=== PATIENT | male | born 1965 | race Caucasian/White ===

== ENCOUNTER → 2016-06-27 | Outpatient (CLI) | payer OTHER ==
[~2016-06-27] MED LIST: ASPI-435 PO; BUSP15TA70 PO; CINN500T PO; OMEP40CA PO
[2016-06-27 10:58] LABS: BASO % 0.2 %; BASO ABS # 0.01 K/uL (0-0.2); COMPLETE YES; EOS % 0.5 %; HEMATOCRIT 41.9 % (42-52); IG% 0.2 %; LYMPH ABS # 1.57 K/uL (1.2-3.4); MEAN CELL VOLUME 92.3 fL (80-100); MEAN CORPUSCULAR HEMOGLOBIN 30.4 pg (25-34); MEAN CORPUSCULAR HGB CONC 32.9 g/dl (32-36); MEAN PLATELET VOLUME 11.1 fL (7.4-10.4); MONO % 8.6 %; NEUT % 62.5 %; PLATELET COUNT 268 K/uL (130-400); RED BLOOD COUNT 4.54 M/uL (4.7-6.1)
[2016-06-27 11:20] LABS: ALT/SGPT 29 U/L (12-78); AST/SGOT 18 U/L (15-37); BLOOD UREA NITROGEN 19 mg/dl (7-18); BUN/CREATININE RATIO 19.2 (10-20); CALCIUM 8.6 mg/dl (8.5-10.1); CARBON DIOXIDE 28 mmol/L (21-32); CHLORIDE 108 mmol/L (98-107); GLUCOSE 97 mg/dl (70-99); POTASSIUM 4.3 mmol/L (3.5-5.1); SODIUM 144 mmol/L (136-145)
[2016-06-27 11:23] LABS: ALB/GLOB RATIO 1.1 (0.9-2); ALKALINE PHOSPHATASE 74 U/L (45-117); CHOLESTEROL 272 mg/dl (0-200); CHOLESTEROL/HDL RATIO 7.4; HDL CHOLESTEROL 37 mg/dl; LDL CHOLESTEROL CALCULATED 199 mg/dl; TRIGLYCERIDES 179 mg/dl (0-150); VERY LOW DENSITY LIPOPROT CALC 36 mg/dl
== END | disposition home or self-care (01) ==
LOC: C.LABBC 08:03
PROVIDERS: ATTEND Family Medicine
DX: E78.5 Hyperlipidemia, unspecified (principal); Z13.0 Encounter for screening for diseases of the blood and blood-forming organs and certain disorders involving the immune mechanism

== ENCOUNTER → 2016-07-02 | Outpatient (CLI) | payer OTHER ==
[2016-07-02 14:05] LABS: FERRITIN 344.3 ng/ml (8.0-388.0)
== END | disposition home or self-care (01) ==
LOC: C.LABBC 11:06
PROVIDERS: ATTEND Family Medicine
DX: D64.9 Anemia, unspecified (principal)

== ENCOUNTER → 2016-12-03 | Outpatient (CLI) | payer OTHER ==
[~2016-12-03] VITALS: Ht 179.1 cm; Wt 137.0 kg
[2016-12-03 13:52] VITALS: BP 143/87; PULSE 90; Ht 179.1 cm; Wt 137.0 kg
== END | disposition home or self-care (01) ==
LOC: C.NEUR 11:13
PROVIDERS: ATTEND Internal Medicine Pulmonary Disease
DX: G47.33 Obstructive sleep apnea (adult) (pediatric) (principal)

== ENCOUNTER 2021-07-10 04:31 | Inpatient (IN) ==
[2021-07-10] MEDS ORDERED: MoRPHine SULFATE 4 MG/ML 1 ML CARP\\VIAL IV STA (04:46)
[2021-07-10] MEDS ORDERED: SODIUM CHLORIDE 0.9% 1000ML 1,000 ML IV ONE (04:46)
--- NOTE | 2021-07-10 04:50 | Emergency Department Note ---
History of Present Illness General Chief complaint: Abdominal Pain Stated complaint: ABD PAIN Time Seen by Provider: 07/10/21 04:39 History of Present Illness Maximum Pain Intensity: 7 This 56-year-old presents to the ER complaining of abdominal pain Location: Lower abdomen Quality: Painful Severity: Moderate Duration: Past few days Timing: Started few days ago Context: Symptoms persisted and patient given Modifying factors: better with nothing; worse with activity No prior abdominal surgeries. No similar symptoms in the past. No prior diverticulitis. Patient denies chest pain, dyspnea, fevers, vomiting, diarrhea, urinary symptoms, testicular pain. No flank pain. Home Medications Medication Instructions Recorded Confirmed Type omeprazole 20 mg tablet,delayed 20 mg PO DAILY 01/10/19 04/28/21 History release CPAP Supplies #1 ea 02/20/19 04/28/21 Rx aspirin 81 mg chewable tablet 81 mg PO 2XWK tab 11/16/19 04/28/21 History irbesartan 150 mg tablet 150 mg PO DAILY #90 tab 02/28/21 04/28/21 Rx atorvastatin 40 mg tablet 80 mg PO HS #90 tab 04/28/21 Rx buspirone 5 mg tablet 5 mg PO BID PRN #60 tab 04/28/21 04/28/21 Rx naproxen sodium [Aleve] PO 04/28/21 04/28/21 History ciprofloxacin HCl 500 mg tablet 500 mg PO BID 10 Days #20 tab 07/10/21 Rx (Cipro) metronidazole 500 mg tablet 500 mg PO Q8H 10 Days #30 tab 07/10/21 Rx Allergies Allergy/AdvReac Type Severity Reaction Status Date / Time Penicillins Allergy Intermediate ANGIOEDEMA Verified 04/28/21 08:24 Past Med/Surg History Medical History (Updated 07/10/21 @ 08:59 by Trenton Phelan) Anxiety GERD (gastroesophageal reflux disease) History of diverticulitis Hyperlipidemia Hypertension Osteoarthritis Prediabetes Sleep apnea CPAP Surgical History (Updated 07/10/21 @ 08:44 by Trenton Phelan) History of arthroscopy of left knee History of cardiac cath 2011 @ [facility] no stents History of colonoscopy 06/2018 - sigmoid diverticular disease, 2 polyps History of surgery on arm left bicep tendon repair - Wally Mohamud MD History of tonsillectomy and adenoidectomy History of tooth extraction History of wisdom tooth extraction Status post myringotomy with tube placement of both ears Family History (Updated 07/10/21 @ 08:44 by Trenton Phelan) Father Family history of diabetes mellitus Daughter Family hx of colon cancer Grandmother Ovarian cancer Uncle Myocardial infarction Mother Brain cancer SOCK DRIER Lymphoma Other Breast cancer Colorectal cancer Coronary heart disease Heart disease Hypertension No family history of adverse response to anesthesia Denies family history of Prostate cancer Social History (Updated 07/10/21 @ 08:45 by Trenton Phelan) Smoking Status: Current every day smoker Tobacco Type: Cigarettes Cigarettes Per Day: 15; Second Hand Exposure: No; Do You Dip or Chew Tobacco: No; Tobacco Cessation Education Requested by Patient: No Hx Alcohol Use: Yes Alcohol type: beer Hx Substance Use: No Preferred Language: Occitan Communication Ability: Effective Visual Impairment: Limited Hearing Ability: Normal Poultry Farmer Required: No Beliefs That Will Affect Care: None marital status: Current Living Situation: Spouse Current Living Situation Comment: Lives with and 2 granddaughters current occupational status: employed 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 How many Children do You have: 4 Other Information That Helps Us Care for You: No Feels Safe at Home: Yes Safety Concerns: Feels Safe At This Time Childhood Exposure to Second-Hand Smoke: Yes caffeine: Yes during the past year weight has: remained stable Dental Care, Regularly: No Physical Activity Frequency: Does not Exercise Seatbelt Use: always Sunscreen Use: Yes Assistive Devices: CPAP and Glasses Review of Systems A total of 10 systems reviewed and were otherwise negative Physical Exam Vital Signs Vital Signs - 24 hr 07/10/21 04:34 07/10/21 05:00 07/10/21 05:02 Temperature 36.3 C L Temperature Source Temporal Artery Scan Pulse Rate 99 H 94 H Pulse Rate [Apical] 95 H Pulse Rhythm Regular Pulse Rhythm [Apical] Regular Pulse Strength [Apical] Normal Respiratory Rate 16 18 18 Respiratory Effort / Characteristics Non-Labored Spontaneous Respiratory Depth Normal Respiratory Pattern Regular Blood Pressure 153/92 H Blood Pressure [Right Arm] 134/76 Blood Pressure Mean 112 Blood Pressure Mean [Right Arm] 95 Blood Pressure Position [Right Arm] Semi-fowlers Pulse Oximetry 98 98 98 Oxygen Delivery Method Room Air Room Air Room Air Sepsis Recent Fever Within 48 Hours No Sepsis New/Unexplained Change in Mental Status No Sepsis Action Taken by Nursing No Action Required 07/10/21 07:00 Temperature Temperature Source Pulse Rate Pulse Rate [Apical] 89 Pulse Rhythm Pulse Rhythm [Apical] Regular Pulse Strength [Apical] Normal Respiratory Rate 17 Respiratory Effort / Characteristics Non-Labored Spontaneous Respiratory Depth Normal Respiratory Pattern Blood Pressure Blood Pressure [Right Arm] 134/76 Blood Pressure Mean Blood Pressure Mean [Right Arm] 95 Blood Pressure Position [Right Arm] Lying Pulse Oximetry 98 Oxygen Delivery Method Room Air Sepsis Recent Fever Within 48 Hours Sepsis New/Unexplained Change in Mental Status Sepsis Action Taken by Nursing VITALS: Vitals are noted on the nurse's note and reviewed by myself. Vital signs stable. GENERAL: Pleasant male, in no acute distress, nondiaphoretic, well-developed well-nourished. SKIN: The skin was without rashes, erythema, edema, or bruising. There is no tenting of the skin. Capillary reflex less than 2 seconds. HEAD: Normocephalic atraumatic. EARS: External auditory canals clear EYES: Pupils equal round and reactive to light and accommodation. Conjunctivae without injection, sclerae without icterus. Extraocular movements intact. NOSE: Patent, turbinates without inflammation or discharge. MOUTH: Mucous membranes moist. Pharynx without erythema or exudate. Uvula midline. Airway patent. Tongue does not deviate. NECK: Supple without nuchal rigidity. No lymphadenopathy. No thyromegaly. Cervical spine is nontender. No JVD. HEART: Regular rate and rhythm LUNGS: Clear to auscultation bilaterally without wheezes, rales or rhonchi. No retractions or accessory muscle use. ABDOMEN: Positive bowel sounds x 4. Normal tympanic percussion. Soft, tender lower abdomen,, without masses or organomegaly. Cates sign negative. No guarding or rebound tenderness. No CVA tenderness MUSCULOSKELETAL: No muscle atrophy, erythema, or edema noted. NEURO: Patient was alert and oriented to person place and time. Normal sensation to light and sharp touch. No focal neurological deficits. Course Administered Medications Enoxaparin Sodium (Enoxaparin Inj 40 Mg/0.4 Ml Syr) 40 mg SQ Q12H MATTHEW Stop: 08/09/21 20:59 Last Admin: 07/10/21 21:18 Dose: 40 mg Documented by: [id number] Hydromorphone HCl (Hydromorphone Inj 0.5 Mg/0.5 Ml Syr) 0.5 mg IV Q6H PRN PRN Reason: Pain Stop: 07/24/21 08:52 Last Admin: 07/10/21 23:05 Dose: 0.5 mg Documented by: [id number] Admin: 07/10/21 17:09 Dose: 0.5 mg Documented by: [id number] Meropenem 500 mg/ Syringe 10 mls @ 2 mls/min IV Q6H MATTHEW; Protocol Stop: 07/20/21 11:59 Last Admin: 07/10/21 23:05 Dose: 2 mls/min Documented by: [id number] Admin: 07/10/21 17:12 Dose: 2 mls/min Documented by: [id number] Admin: 07/10/21 12:27 Dose: 2 mls/min Documented by: [id number] Lactated Ringer's (Lr) 1,000 mls @ 125 mls/hr IV .Q8H MATTHEW Stop: 08/09/21 08:52 Last Admin: 07/10/21 17:13 Dose: 125 mls/hr Documented by: [id number] Infusion: 07/10/21 17:13 Dose: 125 mls/hr Documented by: [id number] Admin: 07/10/21 09:21 Dose: 125 mls/hr Documented by: [id number] Famotidine 20 mg/ Syringe 5 mls @ 2.5 mls/min IV BID MATTHEW Stop: 08/09/21 08:59 Last Admin: 07/10/21 21:20 Dose: 2.5 mls/min Documented by: [id number] Admin: 07/10/21 12:28 Dose: 2.5 mls/min Documented by: [id number] Lactobacillus Acidophilus (Advanced Probiotic 1250 Mg Capsule) 2 cap PO DAILY MATTHEW Stop: 08/09/21 08:59 Last Admin: 07/10/21 12:27 Dose: 2 cap Documented by: [id number] Discontinued Medications Ciprofloxacin (Ciprofloxacin 500mg Home Pack) 1 homepack PO UD ONE Stop: 07/10/21 06:05 Last Admin: 07/10/21 08:07 Dose: Not Given Documented by: [id number] Hydromorphone HCl (Hydromorphone Inj 0.5 Mg/0.5 Ml Syr) 0.25 mg IV Q6H PRN PRN Reason: Pain Stop: 07/24/21 08:52 Last Admin: 07/10/21 09:20 Dose: 0.25 mg Documented by: [id number] Sodium Chloride (Nss 1000ml) 1,000 mls @ 999 mls/hr IV .Q1H1M ONE Stop: 07/10/21 05:46 Last Infusion: 07/10/21 07:23 Dose: 0 mls/hr Documented by: [id number] Admin: 07/10/21 05:12 Dose: 999 mls/hr Documented by: [id number] Ciprofloxacin (Cipro / D5w) 400 mg in 200 mls @ 100 mls/hr IV NOW STA; Protocol Stop: 07/10/21 08:03 Last Infusion: 07/10/21 08:24 Dose: 0 mls/hr Documented by: [id number] Admin: 07/10/21 06:24 Dose: 100 mls/hr Documented by: [id number] Ioversol (Optiray 320 125ml) 119 ml IV ONCE ONE Stop: 07/10/21 05:38 Last Admin: 07/10/21 05:40 Dose: 119 ml Documented by: [id number] Ketorolac Tromethamine (Ketorolac 30 Mg/Ml Vial) 30 mg IV NOW ONE Stop: 07/10/21 17:01 Last Admin: 07/10/21 17:08 Dose: 30 mg Documented by: [id number] Metronidazole (Metronidazole 500 Mg Tab) 500 mg PO NOW STA Stop: 07/10/21 06:05 Last Admin: 07/10/21 06:28 Dose: 500 mg Documented by: [id number] Morphine Sulfate (Morphine Sulfate 4 Mg/Ml 1 Ml Carp\Vial) 4 mg IV NOW STA Stop: 07/10/21 04:47 Last Admin: 07/10/21 05:14 Dose: 4 mg Documented by: [id number] Ondansetron HCl (Ondansetron Inj 2 Mg/Ml 2 Ml Vial) 4 mg IV NOW STA Stop: 07/10/21 04:47 Last Admin: 07/10/21 05:00 Dose: 4 mg Documented by: [id number] Ondansetron HCl (Ondansetron Home Pack 4mg Od Tab) 1 homepack PO NOW ONE Stop: 07/10/21 06:09 Last Admin: 07/10/21 08:08 Dose: Not Given Documented by: [id number] Oxycodone HCl (Oxycodone Ir Home Pack) 1 homepack PO UD ONE Stop: 07/10/21 06:09 Last Admin: 07/10/21 08:08 Dose: Not Given Documented by: [id number] Medical Decision Making Medical Records Attestation: I reviewed the patient's medical records. Home Medications Current Medication List: was personally reviewed by me Laboratory Data Attestation: I reviewed the patient's lab results. Result diagrams: 07/10/21 05:17 07/10/21 05:17 Lab Results 07/10/21 07/10/21 07/10/21 Range/Units 05:17 05:17 05:17 WBC 11.25 H (4.8-10.8) K/uL RBC 4.20 L (4.7-6.1) M/uL Hgb 13.4 L (14.0-18.0) g/dL POC Hgb (14.0-18.0) g/dl Hct 39.2 L (42-52) % POC Hct (42-52) % MCV 93.3 (80-100) fL MCH 31.9 (25-34) pg MCHC 34.2 (32-36) g/dL RDW Std Deviation 46.2 (36.4-46.3) fL RDW Coeff of Brian 13.5 (11.5-14.5) % Plt Count 272 (130-400) K/uL MPV 10.8 H (7.4-10.4) fL Immature Gran % (Auto) 0.3 % Neut % (Auto) 76.6 % Lymph % (Auto) 11.5 % [place] % (Auto) 11.2 % Eos % (Auto) 0.3 % Baso % (Auto) 0.1 % Neut # (Auto) 8.63 H (1.4-6.5) K/uL Lymph # (Auto) 1.29 (1.2-3.4) K/uL [place] # (Auto) 1.26 H (0.11-0.59) K/uL Eos # (Auto) 0.03 (0-0.5) K/uL Baso # (Auto) 0.01 (0-0.2) K/uL Immature Gran # (Auto) 0.03 H (0.00-0.02) K/uL POC Sodium (135-144) mmol/L Sodium 136 (136-145) mmol/L POC Potassium (3.3-5.0) mmol/L Potassium 4.2 (3.5-5.1) mmol/L POC Chloride (101-112) mmol/L Chloride 106 (98-107) mmol/L Carbon Dioxide 24 (21-32) mmol/L POC Total CO2 (24-31) mmol/L Anion Gap 6 (3-11) POC Anion Gap (16-25) mmol/L POC BUN (7-18) mg/dl BUN 20 (6-23) mg/dl Creatinine 0.95 (0.6-1.4) mg/dl POC Creatinine (0.6-1.3) mg/dl Est Cr Clr Drug Dosing 123.4 ml/min Est GFR ( Amer) 104.0 ml/min Est GFR (Non-Af Amer) 89.8 ml/min BUN/Creatinine Ratio 21.1 H (10-20) Glucose 153 H (70-99(Fasting)) mg/dl POC Glucose (other) (70-99) mg/dl Estimat Average Glucose mg/dl Hemoglobin A1c (4.5-5.6) % Calcium 9.0 (8.5-10.1) mg/dl POC Ioniz Calcium Terry (1.12-1.32) mmol/l Magnesium (1.7-2.4) mg/dl Total Bilirubin 0.5 (0.2-1.0) mg/dl AST 21 (13-39) U/L ALT 26 (7-52) U/L Alkaline Phosphatase 75 (34-104) U/L Total Protein 7.3 (6.0-8.3) gm/dl Albumin 4.2 (3.4-5.0) gm/dl Globulin 3.1 (2.5-4.0) gm/dl Albumin/Globulin Ratio 1.4 (0.9-2) Lipase 22 (11-82) U/L Urine Color Yellow Urine Appearance Clear (Clear) Urine pH 6.5 (4.5-7.5) Ur Specific [place] 1.006 (1.000-1.030) Urine Protein Negative (Negative) Urine Glucose (UA) Negative (Negative) Urine Ketones Negative (Negative) Urine Blood Negative (Negative) Urine Nitrite Negative (Negative) Urine Bilirubin Negative (Negative) Urine Urobilinogen Negative (Negative) Ur Leukocyte Esterase Negative (Negative) SARS-CoV-2, RNA, NAAT (NEGATIVE) 07/10/21 07/10/21 07/10/21 Range/Units 05:17 05:17 05:25 WBC (4.8-10.8) K/uL RBC (4.7-6.1) M/uL Hgb (14.0-18.0) g/dL POC Hgb 13.6 L (14.0-18.0) g/dl Hct (42-52) % POC Hct 40 L (42-52) % MCV (80-100) fL MCH (25-34) pg MCHC (32-36) g/dL RDW Std Deviation (36.4-46.3) fL RDW Coeff of Brian (11.5-14.5) % Plt Count (130-400) K/uL MPV (7.4-10.4) fL Immature Gran % (Auto) % Neut % (Auto) % Lymph % (Auto) % [place] % (Auto) % Eos % (Auto) % Baso % (Auto) % Neut # (Auto) (1.4-6.5) K/uL Lymph # (Auto) (1.2-3.4) K/uL [place] # (Auto) (0.11-0.59) K/uL Eos # (Auto) (0-0.5) K/uL Baso # (Auto) (0-0.2) K/uL Immature Gran # (Auto) (0.00-0.02) K/uL POC Sodium 139 (135-144) mmol/L Sodium (136-145) mmol/L POC Potassium 4.3 (3.3-5.0) mmol/L Potassium (3.5-5.1) mmol/L POC Chloride 106 (101-112) mmol/L Chloride (98-107) mmol/L Carbon Dioxide (21-32) mmol/L POC Total CO2 23 L (24-31) mmol/L Anion Gap (3-11) POC Anion Gap 15.0 L (16-25) mmol/L POC BUN 19 H (7-18) mg/dl BUN (6-23) mg/dl Creatinine (0.6-1.4) mg/dl POC Creatinine 0.9 (0.6-1.3) mg/dl Est Cr Clr Drug Dosing ml/min Est GFR ( Amer) ml/min Est GFR (Non-Af Amer) ml/min BUN/Creatinine Ratio (10-20) Glucose (70-99(Fasting)) mg/dl POC Glucose (other) 166 H (70-99) mg/dl Estimat Average Glucose 123 mg/dl Hemoglobin A1c 5.9 H (4.5-5.6) % Calcium (8.5-10.1) mg/dl POC Ioniz Calcium Terry 1.19 (1.12-1.32) mmol/l Magnesium 2.0 (1.7-2.4) mg/dl Total Bilirubin (0.2-1.0) mg/dl AST (13-39) U/L ALT (7-52) U/L Alkaline Phosphatase (34-104) U/L Total Protein (6.0-8.3) gm/dl Albumin (3.4-5.0) gm/dl Globulin (2.5-4.0) gm/dl Albumin/Globulin Ratio (0.9-2) Lipase (11-82) U/L Urine Color Urine Appearance (Clear) Urine pH (4.5-7.5) Ur Specific [place] (1.000-1.030) Urine Protein (Negative) Urine Glucose (UA) (Negative) Urine Ketones (Negative) Urine Blood (Negative) Urine Nitrite (Negative) Urine Bilirubin (Negative) Urine Urobilinogen (Negative) Ur Leukocyte Esterase (Negative) SARS-CoV-2, RNA, NAAT (NEGATIVE) 07/10/21 Range/Units 07:22 WBC (4.8-10.8) K/uL RBC (4.7-6.1) M/uL Hgb (14.0-18.0) g/dL POC Hgb (14.0-18.0) g/dl Hct (42-52) % POC Hct (42-52) % MCV (80-100) fL MCH (25-34) pg MCHC (32-36) g/dL RDW Std Deviation (36.4-46.3) fL RDW Coeff of Brian (11.5-14.5) % Plt Count (130-400) K/uL MPV (7.4-10.4) fL Immature Gran % (Auto) % Neut % (Auto) % Lymph % (Auto) % [place] % (Auto) % Eos % (Auto) % Baso % (Auto) % Neut # (Auto) (1.4-6.5) K/uL Lymph # (Auto) (1.2-3.4) K/uL [place] # (Auto) (0.11-0.59) K/uL Eos # (Auto) (0-0.5) K/uL Baso # (Auto) (0-0.2) K/uL Immature Gran # (Auto) (0.00-0.02) K/uL POC Sodium (135-144) mmol/L Sodium (136-145) mmol/L POC Potassium (3.3-5.0) mmol/L Potassium (3.5-5.1) mmol/L POC Chloride (101-112) mmol/L Chloride (98-107) mmol/L Carbon Dioxide (21-32) mmol/L POC Total CO2 (24-31) mmol/L Anion Gap (3-11) POC Anion Gap (16-25) mmol/L POC BUN (7-18) mg/dl BUN (6-23) mg/dl Creatinine (0.6-1.4) mg/dl POC Creatinine (0.6-1.3) mg/dl Est Cr Clr Drug Dosing ml/min Est GFR ( Amer) ml/min Est GFR (Non-Af Amer) ml/min BUN/Creatinine Ratio (10-20) Glucose (70-99(Fasting)) mg/dl POC Glucose (other) (70-99) mg/dl Estimat Average Glucose mg/dl Hemoglobin A1c (4.5-5.6) % Calcium (8.5-10.1) mg/dl POC Ioniz Calcium Terry (1.12-1.32) mmol/l Magnesium (1.7-2.4) mg/dl Total Bilirubin (0.2-1.0) mg/dl AST (13-39) U/L ALT (7-52) U/L Alkaline Phosphatase (34-104) U/L Total Protein (6.0-8.3) gm/dl Albumin (3.4-5.0) gm/dl Globulin (2.5-4.0) gm/dl Albumin/Globulin Ratio (0.9-2) Lipase (11-82) U/L Urine Color Urine Appearance (Clear) Urine pH (4.5-7.5) Ur Specific [place] (1.000-1.030) Urine Protein (Negative) Urine Glucose (UA) (Negative) Urine Ketones (Negative) Urine Blood (Negative) Urine Nitrite (Negative) Urine Bilirubin (Negative) Urine Urobilinogen (Negative) Ur Leukocyte Esterase (Negative) SARS-CoV-2, RNA, NAAT NEGATIVE (NEGATIVE) Imaging Data Attestation: I personally reviewed and interpreted this imaging study as follows: MDM Narrative Prior records/ancillary studies reviewed. Triage Nursing notes reviewed. Additional history obtained from nursing. The patient's history was concerning for abdominal pain. Differential diagnosis: Etiologies such as appendicitis, diverticulitis, PUD, biliary pathology, UTI, pancreatitis, obstruction, mesenteric ischemia, aortic pathology, infections, inflammatory bowel disease, renal colic, as well as others were entertained. Physical examination findings: As above. ER treatment provided: An order was placed for continuous cardiac monitoring. The monitor shows a rate of 60-1 50 with a sinus rhythm. IV fluids, Zofran, morphine On reassessment the patient felt better. Diagnostics interpreted by me: The labs revealed mild leukocytosis, mild anemia, stable creatinine Imaging studies: As above Exam and history seem consistent with diverticulitis with microperforation. After prolonged discussion, patient is willing to stay. medicine will admit. By the evaluation outlined above emergent etiologies such as appendicitis, PUD, biliary pathology, UTI, pancreatitis, obstruction, mesenteric ischemia, aortic pathology, , inflammatory bowel disease, renal colic, as well as others were deemed relatively unlikely. The pt informed about the findings as listed above. All questions were answered and pleased with the treatment. The chart was completed utilizing [employer] Speech voice recognition software. Grammatical errors, random word insertions, pronoun errors, and incomplete sentences are an occassional consequence of this system due to software limitations, ambient noise, and hardware issues. Any formal questions or concerns about the content, text, or information contained within the body of this dictation should be directly addressed to the physician administrative support assistant for clarification. Impression & Plan Diverticulitis Discharge Plan Visit Data Chief Complaint: Abdominal Pain Stated Complaint: ABD PAIN ED Provider: Reema Lala ED Midlevel Provider: Yvonne Alvarez Discharge Problem: Diverticulitis Patient Disposition: Admitted As Inpatient Condition: Good Discharge Instructions Interventions: ED Discharge Assessment Last Done: 07/10/21 08:16
[2021-07-10] MEDS: ONDANSETRON INJ 2 MG/ML 2 ML VIAL IV STA ×2 (05:00→05:13)
[2021-07-10] MEDS ORDERED: OPTIRAY 320 125ml IV ONE (05:37)
[2021-07-10 05:39] LABS: iSTAT Creatinine 0.9 mg/dl (0.6-1.3); iSTAT Hemoglobin 13.6 g/dl (14.0-18.0); iSTAT Ionized Calcium 1.19 mmol/l (1.12-1.32); iSTAT Potassium 4.3 mmol/L (3.3-5.0)
[2021-07-10 05:42] LABS: Basophils # (auto) 0.01 K/uL (0-0.2); Basophils % (auto) 0.1 %; Eosinophils # (auto) 0.03 K/uL (0-0.5); Eosinophils % (auto) 0.3 %; Hematocrit (blood only) 39.2 % (42-52); Hemoglobin 13.4 g/dL (14.0-18.0); Immature Granulocytes # (auto) 0.03 K/uL (0.00-0.02); Immature Granulocytes % (auto) 0.3 %; Lymphocytes # (auto) 1.29 K/uL (1.2-3.4); Lymphocytes % (auto) 11.5 %; Mean Corpuscular Hemoglobin 31.9 pg (25-34); Mean Corpuscular Hgb Conc 34.2 g/dL (32-36); Mean Corpuscular Volume 93.3 fL (80-100); Mean Platelet Volume 10.8 fL (7.4-10.4); Monocytes # (auto) 1.26 K/uL (0.11-0.59); Monocytes % (auto) 11.2 %; Neutrophils # (auto) 8.63 K/uL (1.4-6.5); Neutrophils % (auto) 76.6 %; Platelet Count 272 K/uL (130-400); RDW Coefficient of Variation 13.5 % (11.5-14.5); RDW Standard Deviation 46.2 fL (36.4-46.3); White Blood Count 11.25 K/uL (4.8-10.8)
[2021-07-10 05:57] LABS: Albumin Globulin Ratio 1.4 (0.9-2); Albumin Level 4.2 gm/dl (3.4-5.0); BUN Creatinine Ratio 21.1 (10-20); Bilirubin,Total 0.5 mg/dl (0.2-1.0); Creatinine Clr Calc Pharmacy 123.4 ml/min; Est GFR (Non-African American) 89.8 ml/min; Globulin 3.1 gm/dl (2.5-4.0); Potassium 4.2 mmol/L (3.5-5.1); Total Protein 7.3 gm/dl (6.0-8.3)
[2021-07-10] MEDS ORDERED: metroNIDAZOLE 500 MG TAB PO STA (06:04)
[2021-07-10] MEDS ORDERED: CIPROFLOXACIN / D5W 400 MG/200 ML BAG IV STA (06:04)
[2021-07-10] MEDS: ONDANSETRON HOME PACK 4MG OD TAB PO ONE ×2 (06:27→08:08)
[2021-07-10] MEDS: oxyCODONE IR HOME PACK PO ONE ×2 (06:27→08:08)
[2021-07-10] MEDS: CIPROFLOXACIN 500MG HOME PACK PO ONE ×2 (06:27→08:07)
[2021-07-10 07:01] LABS: Appearance Urine Clear (Clear); Bilirubin Urine Negative (Negative); Blood Urine Negative (Negative); Color Urine Yellow; Glucose Urine UA Negative (Negative); Ketones Urine Negative (Negative); Leukocyte Esterase Urine Negative (Negative); Nitrite Urine Negative (Negative); Protein Urine Negative (Negative); Specific Gravity Urine 1.006 (1.000-1.030); Urobilinogen Urine Negative (Negative); pH Urine 6.5 (4.5-7.5)
--- NOTE | 2021-07-10 07:01 | CT Scan Report ---
CT OF THE ABDOMEN AND PELVIS WITH CONTRAST CLINICAL HISTORY: mid/low abd pain COMPARISON STUDY: CT of the abdomen and pelvis June 29, 2013. TECHNIQUE: Following IV administration of 119 mL of Optiray, axial images of the abdomen and pelvis w ere obtained from the lung bases to the proximal femurs. Images were reviewed in the axial, sagittal, and coronal planes. IV contrast was administered without complication. Automated exposure control w as utilized for the study. A dose lowering technique was utilized adhering to the principles of ALAPranay Stephenson. CT DOSE: 1889.45 mGy.cm FINDINGS: Lung bases are unremarkable. No pneumatosis, free air or portal venous gas is present. Ther e is hepatic steatosis. No biliary or pancreatic ductal dilatation is present. Spleen, adrenal glands , kidneys and pancreas are normal. There is no hydronephrosis. The appendix is normal. Several loops of mildly dilated small bowel are present. Colonic diverticulosis is noted. Note is made of wall thic kening of the proximal sigmoid colon with moderate adjacent infiltration. A small amount of adjacent extraluminal gas is present. This represents a contained perforation. No rim-enhancing fluid collecti on is suggest an abscess. No additional sites of bowel wall thickening are present. There is no lymph adenopathy. Major vasculature is patent. No acute fracture or suspicious lesion within the visualized skeletal structures. IMPRESSION: 1. Acute sigmoid diverticulitis. Moderate inflammation. Small amount of adjacent extraluminal gas rep resents a contained perforation. No abscess. 2. Mild small bowel dilatation. This may reflect an ileus. 3. Hepatic steatosis. ACT 112: Negative or not required by law. Electronically signed by: Simon Garcia M.D. 07/10/2021 6:59 AM
--- NOTE | 2021-07-10 07:27 | History & Physical Report ---
Date of Service July 10, 2021 Assessment & Plan (1) Acute diverticulitis: Plan: Sigmoid diverticulitis with microperforation. No abscess or macroperforation. Plan - * NPO * copious IVF * severe PCN allergy; given the microperforation this calls for broad-spectrum IV abx therapy thus will use meropenem single agent * IV dilaudid prn * IV zofran prn * [facility] consultation; will need repeat colonoscopy in ~8 weeks following recovery; last colonoscopy 06/2018 (2) Ileus: Plan: 2nd to #1. Supportive care, NPO, IV fluids. Check mag level. Encouraged ambulation. (3) Prediabetes: Plan: Check a1c. Check BSGs q6h. Childs novolog SSI as needed. (4) Anxiety: Plan: Cont buspar prn. (5) GERD (gastroesophageal reflux disease): Plan: Hold po PPI. Change to IV pepcid 20mg BID. (6) Sleep apnea: Plan: CPAP HS. (7) Hypertension: Plan: Hold ARB for now. (8) Hyperlipidemia: Plan: Hold statin for now. 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 Pain is suprapubic in location and radiates to the b/l lower quadrants. Sharp in character especially with movement. No nausea or vomiting. Has felt bloated in the upper abdomen - describes this as a "pressure." His appetite has been less than usual but he did eat sausage for dinner last pm. This made his abdominal pain worse. Last oral intake was early this AM - coffee along with bananas. This, too, made his stomach feel worse. Denies fevers or chills. Upon ER presentation he underwent CT abd/pelvis showing acute sigmoid diverticulitis with microperforation along with small bowel dilatation c/w ileus. Patient initially had told staff he wished to be discharged home but ultimately was agreeable to admission. Allergies Allergy/AdvReac Type Severity Reaction Status Date / Time Penicillins Allergy Intermediate ANGIOEDEMA Verified 04/28/21 08:24 Home Medications Medication Instructions Recorded Confirmed Type omeprazole 20 mg tablet,delayed 20 mg PO DAILY 01/10/19 04/28/21 History release CPAP Supplies #1 ea 02/20/19 04/28/21 Rx aspirin 81 mg chewable tablet 81 mg PO 2XWK tab 11/16/19 04/28/21 History irbesartan 150 mg tablet 150 mg PO DAILY #90 tab 02/28/21 04/28/21 Rx atorvastatin 40 mg tablet 80 mg PO HS #90 tab 04/28/21 Rx buspirone 5 mg tablet 5 mg PO BID PRN #60 tab 04/28/21 04/28/21 Rx naproxen sodium [Aleve] PO 04/28/21 04/28/21 History ciprofloxacin HCl 500 mg tablet 500 mg PO BID 10 Days #20 tab 07/10/21 Rx (Cipro) metronidazole 500 mg tablet 500 mg PO Q8H 10 Days #30 tab 07/10/21 Rx Past Med/Surg History Medical History (Updated 07/10/21 @ 08:59 by Trenton Phelan) Anxiety GERD (gastroesophageal reflux disease) History of diverticulitis Hyperlipidemia Hypertension Osteoarthritis Prediabetes Sleep apnea CPAP Surgical History (Updated 07/10/21 @ 08:44 by Trenton Phelan) History of arthroscopy of left knee History of cardiac cath 2011 @ [facility] no stents History of colonoscopy 06/2018 - sigmoid diverticular disease, 2 polyps History of surgery on arm left bicep tendon repair - Wally Mohamud MD History of tonsillectomy and adenoidectomy History of tooth extraction History of wisdom tooth extraction Status post myringotomy with tube placement of both ears Family History (Updated 07/10/21 @ 08:44 by Trenton Phelan) Father Family history of diabetes mellitus Daughter Family hx of colon cancer Grandmother Ovarian cancer Uncle Myocardial infarction Mother Brain cancer IMPROVEMENT ANALYST Lymphoma Other Breast cancer Colorectal cancer Coronary heart disease Heart disease Hypertension No family history of adverse response to anesthesia Denies family history of Prostate cancer Social History (Updated 07/10/21 @ 08:45 by Trenton Phelan) Smoking Status: Current every day smoker Tobacco Type: Cigarettes Cigarettes Per Day: 15; Second Hand Exposure: No; Hx Alcohol Use: No Hx Substance Use: No Preferred Language: Kyrgyz Communication Ability: Effective Visual Impairment: Limited Hearing Ability: Normal Cold Header Required: No Beliefs That Will Affect Care: None marital status: Current Living Situation: Spouse Current Living Situation Comment: Lives with and 2 granddaughters current occupational status: employed 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 How many Children do You have: 4 Feels Safe at Home: Yes Childhood Exposure to Second-Hand Smoke: Yes caffeine: Yes during the past year weight has: remained stable Dental Care, Regularly: No Physical Activity Frequency: Does not Exercise Seatbelt Use: always Sunscreen Use: Yes Assistive Devices: CPAP, Crutches and Glasses Review of Systems Review of Systems: gen - no fevers, no chills, up until this episode of diverticulitis appetite had been wnl eyes - no visual changes HENT - no sore throat, nasal congestion, or dysphagia CV - no chest pain pulm - no cough, no dyspnea GI - no nausea/emesis; no blood in stool; last stool - 07/09 (normal); abd pain and bloating - urinary frequency/nocturia and mild dysuria - usually at night-time musculo - chronic arthralgias of knees, etc skin - no rash but has dry skin endo - pre-diabetes based on records neuro - no headaches lymph - no lymph nodes psych - no depression Physical Exam Physical Exam: gen - NAD, obese eyes - PERRL HENT - MM slightly dry; no lesions neck - no JVD, no masses heart - RRR, s1 s2, no murmurs lungs - CTA b/l abd - distended, BS+ but decreased, very tender to palpation b/l lower quadrants especially at the junction of the quadrants, no HSM; no peritoneal signs ext - <1+ edema b/l, pulses 2+ b/l neuro - strength 5/5 x 4 exts; DTRs 2+ b/l skin - mildly dry skin on arms lymph - no cervical lymph nodes psych - a/o x 3 Results & Data Results & Data ([facility]) Vital Signs (Past 12 Hours) Vital Signs Temp Pulse Pulse Resp BP BP Pulse Ox 07/10/21 07:00 89 17 134/76 98 07/10/21 05:02 94 H 18 98 07/10/21 05:00 95 H 18 134/76 98 07/10/21 04:34 36.3 C L 99 H 16 153/92 H 98 Laboratory Results Laboratory Results - last 24 hr 07/10/21 07/10/21 07/10/21 05:17 05:17 05:17 WBC 11.25 H RBC 4.20 L Hgb 13.4 L POC Hgb Hct 39.2 L POC Hct MCV 93.3 MCH 31.9 MCHC 34.2 RDW Std Deviation 46.2 RDW Coeff of Brian 13.5 Plt Count 272 MPV 10.8 H Immature Gran % (Auto) 0.3 Neut % (Auto) 76.6 Lymph % (Auto) 11.5 [place] % (Auto) 11.2 Eos % (Auto) 0.3 Baso % (Auto) 0.1 Neut # (Auto) 8.63 H Lymph # (Auto) 1.29 [place] # (Auto) 1.26 H Eos # (Auto) 0.03 Baso # (Auto) 0.01 Immature Gran # (Auto) 0.03 H POC Sodium Sodium 136 POC Potassium Potassium 4.2 POC Chloride Chloride 106 Carbon Dioxide 24 POC Total CO2 Anion Gap 6 POC Anion Gap POC BUN BUN 20 Creatinine 0.95 POC Creatinine Est Cr Clr Drug Dosing 123.4 Est GFR ( Amer) 104.0 Est GFR (Non-Af Amer) 89.8 BUN/Creatinine Ratio 21.1 H Glucose 153 H POC Glucose (other) Calcium 9.0 POC Ioniz Calcium Terry Total Bilirubin 0.5 AST 21 ALT 26 Alkaline Phosphatase 75 Total Protein 7.3 Albumin 4.2 Globulin 3.1 Albumin/Globulin Ratio 1.4 Lipase 22 Urine Color Yellow Urine Appearance Clear Urine pH 6.5 Ur Specific Welch 1.006 Urine Protein Negative Urine Glucose (UA) Negative Urine Ketones Negative Urine Blood Negative Urine Nitrite Negative Urine Bilirubin Negative Urine Urobilinogen Negative Ur Leukocyte Esterase Negative SARS-CoV-2, RNA, NAAT 07/10/21 07/10/21 05:25 07:22 WBC RBC Hgb POC Hgb 13.6 L Hct POC Hct 40 L MCV MCH MCHC RDW Std Deviation RDW Coeff of Brian Plt Count MPV Immature Gran % (Auto) Neut % (Auto) Lymph % (Auto) [place] % (Auto) Eos % (Auto) Baso % (Auto) Neut # (Auto) Lymph # (Auto) [place] # (Auto) Eos # (Auto) Baso # (Auto) Immature Gran # (Auto) POC Sodium 139 Sodium POC Potassium 4.3 Potassium POC Chloride 106 Chloride Carbon Dioxide POC Total CO2 23 L Anion Gap POC Anion Gap 15.0 L POC BUN 19 H BUN Creatinine POC Creatinine 0.9 Est Cr Clr Drug Dosing Est GFR ( Amer) Est GFR (Non-Af Amer) BUN/Creatinine Ratio Glucose POC Glucose (other) 166 H Calcium POC Ioniz Calcium Terry 1.19 Total Bilirubin AST ALT Alkaline Phosphatase Total Protein Albumin Globulin Albumin/Globulin Ratio Lipase Urine Color Urine Appearance Urine pH Ur Specific Welch Urine Protein Urine Glucose (UA) Urine Ketones Urine Blood Urine Nitrite Urine Bilirubin Urine Urobilinogen Ur Leukocyte Esterase SARS-CoV-2, RNA, NAAT NEGATIVE Diagnostic Findings Abdomen/Pelvis CT 07/10/21 04:53 CT OF THE ABDOMEN AND PELVIS WITH CONTRAST CLINICAL HISTORY: mid/low abd pain COMPARISON STUDY: CT of the abdomen and pelvis June 29, 2013. TECHNIQUE: Following IV administration of 119 mL of Optiray, axial images of the abdomen and pelvis were obtained from the lung bases to the proximal femurs. Images were reviewed in the axial, sagittal, and coronal planes. IV contrast was administered without complication. Automated exposure control was utilized for the study. A dose lowering technique was utilized adhering to the principles of ALARA. CT DOSE: 1889.45 mGy.cm FINDINGS: Lung bases are unremarkable. No pneumatosis, free air or portal venous gas is present. There is hepatic steatosis. No biliary or pancreatic ductal dilatation is present. Spleen, adrenal glands, kidneys and pancreas are normal. There is no hydronephrosis. The appendix is normal. Several loops of mildly dilated small bowel are present. Colonic diverticulosis is noted. Note is made of wall thickening of the proximal sigmoid colon with moderate adjacent infiltration. A small amount of adjacent extraluminal gas is present. This represents a contained perforation. No rim-enhancing fluid collection is suggest an abscess. No additional sites of bowel wall thickening are present. There is no lymphadenopathy. Major vasculature is patent. No acute fracture or suspicious lesion within the visualized skeletal structures. IMPRESSION: 1. Acute sigmoid diverticulitis. Moderate inflammation. Small amount of adjacent extraluminal gas represents a contained perforation. No abscess. 2. Mild small bowel dilatation. This may reflect an ileus. 3. Hepatic steatosis. ACT 112: Negative or not required by law. Electronically signed by: Simon Garcia M.D. 07/10/2021 6:59 AM Code Status & VTE Plan Code Status full PG Care Time/CCT Total # of Minutes Spent Total Time Spent with Patient: Total time spent is greater than 50% in coordination of care (as documented) at patient's floor/unit and/or counseling patient: Coding Level of Care Code 70452 Initial Inpt Care Lvl 3 Diagnoses Acute diverticulitis K57.92 Prediabetes R73.03 Anxiety F41.9 GERD (gastroesophageal reflux disease) K21.9 Sleep apnea G47.30 Hypertension I10 Hyperlipidemia E78.5 Morbid obesity with BMI of 40.0-44.9, adult E66.01; Z68.41 Anemia D64.9 DVT prophylaxis Z29.9 Ileus K56.7 Tobacco dependence F17.200
[2021-07-10] MEDS ORDERED: MEROPENEM CONSULT ACTIVE PRN (08:53)
[2021-07-10] MEDS ORDERED: ONDANSETRON INJ 2 MG/ML 2 ML VIAL IV PRN (08:53)
[2021-07-10] MEDS ORDERED: HYDROmorphone INJ 0.5 MG/0.5 ML SYR IV PRN (08:53)
[2021-07-10] MEDS ORDERED: busPIRone 5 MG TAB PO PRN (08:53)
[2021-07-10] MEDS: LACTATED RINGER'S 1,000 ML IV SCH ×2 (09:21→17:13)
[2021-07-10 10:45] LABS: Estimated Average Glucose 123 mg/dl; Hemoglobin A1C 5.9 % (4.5-5.6)
--- NOTE | 2021-07-10 10:54 | Gastrointestinal Consultation ---
Date of Consultation July 10, 2021 Assessment & Plan (1) Diverticulitis: Agree with the current plan of care. -NPO. When diet is eventually advanced would emphasize slow transition from liquids to low residue diet. -Consider general surgery consult if worsening. -Continue IV Meropenem. -Plan for outpatient colonoscopy in 8 weeks. Supervising Physician Co-Signing Physician Notes I personally evaluated the patient and agree with the findings as documented by Ana Paula Elias, PAC Exam: Constitutional: WD/WN, vitals as above General: EOM intact bilaterally Neck: normal visual inspection Respiratory: normal respiratory effort, lungs clear to auscultation Cardiovascular: RRR, no murmur, no edema Gastrointestinal: abdomennormal to inspection, nondistended, soft, left sided and diffuse lower abdominal tenderness that is mild, no hepatosplenomegaly Musculoskeletal: no cyanosis, head normal to inspection Skin: no rashes, warm and dry Neurologic: moves all extremities Psychiatric: alert and cooperative, euthymic affect History of Present Illness Reason for Consultation: Diverticulitis with perforation Attending Physician: Trenton Phelan History of Present Illness Patient is a 56 yo male with PMH of HTN, pre-diabetes, MINNIE, tobacco use, morbid obesity, and known diverticular disease who presented to the ED after experiencing severe bilateral lower quadrant and suprapubic abdominal pain x 3 days. He notes that the pain was a bloating and pressure feeling. He notes he has not been able to tolerate a diet at home without significant worsening of his symptoms. He does not typically struggle with constipation but noticed difficulty moving his bowels. He had a colonoscopy in [address] that [address]. CT in the ER indicated CT abdomen/pelvis with acute sigmoid diverticulitis with microperforation. WBC 11,250. He is currently NPO on Meropenem. He notes improvement of his symptoms since admission. Allergies Allergy/AdvReac Type Severity Reaction Status Date / Time Penicillins Allergy Intermediate ANGIOEDEMA Verified 04/28/21 08:24 Home Medications Medication Instructions Recorded Confirmed Type omeprazole 20 mg tablet,delayed 20 mg PO DAILY 01/10/19 04/28/21 History release CPAP Supplies #1 ea 02/20/19 04/28/21 Rx aspirin 81 mg chewable tablet 81 mg PO 2XWK tab 11/16/19 04/28/21 History irbesartan 150 mg tablet 150 mg PO DAILY #90 tab 02/28/21 04/28/21 Rx atorvastatin 40 mg tablet 80 mg PO HS #90 tab 04/28/21 Rx buspirone 5 mg tablet 5 mg PO BID PRN #60 tab 04/28/21 04/28/21 Rx naproxen sodium [Aleve] PO 04/28/21 04/28/21 History ciprofloxacin HCl 500 mg tablet 500 mg PO BID 10 Days #20 tab 07/10/21 Rx (Cipro) metronidazole 500 mg tablet 500 mg PO Q8H 10 Days #30 tab 07/10/21 Rx Patient History Medical History (Updated 07/10/21 @ 08:59 by Trenton Phelan) Anxiety GERD (gastroesophageal reflux disease) History of diverticulitis Hyperlipidemia Hypertension Osteoarthritis Prediabetes Sleep apnea CPAP Surgical History (Updated 07/10/21 @ 08:44 by Trenton Phelan) History of arthroscopy of left knee History of cardiac cath 2011 @ [facility] no stents History of colonoscopy 06/2018 - sigmoid diverticular disease, 2 polyps History of surgery on arm left bicep tendon repair - Wally Mohamud MD History of tonsillectomy and adenoidectomy History of tooth extraction History of wisdom tooth extraction Status post myringotomy with tube placement of both ears Family History (Updated 07/10/21 @ 08:44 by Trenton Phelan) Father Family history of diabetes mellitus Daughter Family hx of colon cancer Grandmother Ovarian cancer Uncle Myocardial infarction Mother Brain cancer OUTSIDE DELIVERER Lymphoma Other Breast cancer Colorectal cancer Coronary heart disease Heart disease Hypertension No family history of adverse response to anesthesia Denies family history of Prostate cancer Social History (Updated 07/10/21 @ 08:45 by Trenton Phelan) Smoking Status: Current every day smoker Tobacco Type: Cigarettes Cigarettes Per Day: 15; Second Hand Exposure: No; Do You Dip or Chew Tobacco: No; Tobacco Cessation Education Requested by Patient: No Hx Alcohol Use: Yes Alcohol type: beer Hx Substance Use: No Preferred Language: Urdu Communication Ability: Effective Visual Impairment: Limited Hearing Ability: Normal Oxygen Therapy Technician Required: No Beliefs That Will Affect Care: None marital status: Current Living Situation: Spouse Current Living Situation Comment: Lives with and 2 granddaughters current occupational status: employed 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 How many Children do You have: 4 Other Information That Helps Us Care for You: No Feels Safe at Home: Yes Safety Concerns: Feels Safe At This Time Childhood Exposure to Second-Hand Smoke: Yes caffeine: Yes during the past year weight has: remained stable Dental Care, Regularly: No Physical Activity Frequency: Does not Exercise Seatbelt Use: always Sunscreen Use: Yes Assistive Devices: CPAP and Glasses Review of Systems Constitutional: no fever and no chills Respiratory: no cough and no dyspnea Cardiovascular: no chest pain Gastrointestinal: + abdominal pain; no change in bowel habits and no diarrhea/loose stools Musculoskeletal: no problem reported Psychiatric: no problem reported Hematologic / Lymphatic: no unexplained weight loss Physical Exam Constitutional: well developed Respiratory: normal respiratory effort Cardiovascular: Rate/Rhythm: regular rate Gastrointestinal (Abdomen): Inspection/Auscultation: abdomen normal to inspection Percussion/Palpation: + abdomen tender Psychiatric: Orientation: alert and oriented x 3 Results & Data ([facility]) Vital Signs (Past 12 Hours) Vital Signs Temp Pulse Pulse Resp BP BP Pulse Ox 07/10/21 07:00 89 17 134/76 98 07/10/21 05:02 94 H 18 98 07/10/21 05:00 95 H 18 134/76 98 07/10/21 04:34 36.3 C L 99 H 16 153/92 H 98 PG Care Time/CCT Total # of Minutes Spent Total Time Spent with Patient: Total time spent is greater than 50% in coordination of care (as documented) at patient's floor/unit and/or counseling patient: Coding Level of Care Code 47650 Inpt Consult Level 4 Diagnoses Diverticulitis K57.92
[2021-07-10] MEDS: MEROPENEM 500 MG in SYRINGE 0 ML IV SCH ×3 (12:27→23:05)
[2021-07-10] MEDS: ADVANCED PROBIOTIC 1250 MG CAPSULE PO SCH (12:27)
[2021-07-10] MEDS: FAMOTIDINE 20 MG in SYRINGE 3 ML IV SCH ×2 (12:28→21:20)
[2021-07-10] MEDS ORDERED: KETOROLAC 30 MG/ML VIAL IV ONE (17:00)
[2021-07-10] MEDS: HYDROmorphone INJ 0.5 MG/0.5 ML SYR IV PRN ×2 (17:09→23:05)
[2021-07-10] MEDS: ENOXAPARIN INJ 40 MG/0.4 ML SYR SQ SCH (21:18)
[2021-07-11] MEDS: LACTATED RINGER'S 1,000 ML IV SCH ×3 (01:13→18:17)
[2021-07-11] MEDS: HYDROmorphone INJ 0.5 MG/0.5 ML SYR IV PRN ×4 (04:37→19:35)
[2021-07-11] MEDS: MEROPENEM 500 MG in SYRINGE 0 ML IV SCH ×3 (06:18→17:32)
[2021-07-11 06:32] LABS: Basophils # (auto) 0.01 K/uL (0-0.2); Basophils % (auto) 0.1 %; Hematocrit (blood only) 36.4 % (42-52); Hemoglobin 12.8 g/dL (14.0-18.0); Immature Granulocytes # (auto) 0.03 K/uL (0.00-0.02); Immature Granulocytes % (auto) 0.2 %; Lymphocytes # (auto) 0.98 K/uL (1.2-3.4); Lymphocytes % (auto) 6.7 %; Mean Corpuscular Hemoglobin 32.4 pg (25-34); Mean Corpuscular Hgb Conc 35.2 g/dL (32-36); Mean Corpuscular Volume 92.2 fL (80-100); Mean Platelet Volume 10.5 fL (7.4-10.4); Monocytes # (auto) 1.24 K/uL (0.11-0.59); Monocytes % (auto) 8.5 %; Neutrophils % (auto) 84.5 %; Platelet Count 268 K/uL (130-400); RDW Coefficient of Variation 13.2 % (11.5-14.5); RDW Standard Deviation 44.7 fL (36.4-46.3); Red Blood Count 3.95 M/uL (4.7-6.1); White Blood Count 14.66 K/uL (4.8-10.8)
[2021-07-11 06:56] LABS: BUN Creatinine Ratio 16.7 (10-20); Calcium 8.8 mg/dl (8.5-10.1); Creatinine Clr Calc Pharmacy 129.8 ml/min; Est GFR (Non-African American) 95.8 ml/min; Potassium 4.3 mmol/L (3.5-5.1)
[2021-07-11 06:57] LABS: Iron 22 mcg/dl (35-175); Total Iron Binding Cap Calc 227 mcg/dl (250-450); Transferrin (FE) Percent Satur 10 % (20-50); Unsaturated Iron Binding Cap 205 mcg/dl (155-355)
[2021-07-11 07:17] LABS: Folate (Folic Acid) 15.33 ng/ml (>5.38)
[2021-07-11 07:32] LABS: Ferritin 769.1 ng/ml (8-388)
[2021-07-11] MEDS: ENOXAPARIN INJ 40 MG/0.4 ML SYR SQ SCH ×2 (09:40→21:31)
[2021-07-11] MEDS: FAMOTIDINE 20 MG in SYRINGE 3 ML IV SCH ×2 (09:40→21:31)
[2021-07-11] MEDS: ADVANCED PROBIOTIC 1250 MG CAPSULE PO SCH (09:40)
--- NOTE | 2021-07-11 10:05 | XRay Report ---
XR abdomen 2V w PA chest CLINICAL HISTORY: diverticulitis, microperf; eval 4 macroperforation. COMPARISON STUDY: CT of the abdomen and pelvis from 07/10/2021 TECHNIQUE: Single view of the chest. Supine and upright views of the abdomen. FINDINGS: Single frontal view of the chest demonstrates the cardiomediastinal silhouette to be within normal li mits. The lungs are clear of acute alveolar opacities. There is no evidence for pleural effusion. The re is no evidence for vascular congestion. There is no acute osseous pathology. Abdomen: There is no free air or significant air-fluid levels present. There is no free air identifie d under the hemidiaphragms. The bowel gas pattern is within normal limits without evidence for dilata tion or obstruction. There is no evidence for organomegaly or gross intra-abdominal mass. No abnormal calcifications are seen along the course of the urinary tracts bilaterally. No acute osseous patholo gy. IMPRESSION: 1. No acute intra-abdominal or chest abnormality. ACT 112: Negative or not required by law. Electronically signed by: Caden Torres M.D. 07/11/2021 10:03 AM
--- NOTE | 2021-07-11 20:10 | Hospitalist Progress Note ---
Date of Service July 11, 2021 Assessment & Plan (1) Acute diverticulitis: Plan: Sigmoid diverticulitis with microperforation. No abscess or macroperforation. WBC count trended up overnight, and pain continues. Thus, keep NPO. Adjust dilaudid. Cont IVF. No change in meropenem IV. re-eval tomorrow. x-rays of abd obtained this am --- no free air seen; no SBO. repeat labs in am. hopefully he improves overnight and we can start some clears on 07/12. (2) Ileus: Plan: 2nd to #1. Supportive care, NPO, IV fluids. Again encouraged ambulation. (3) Prediabetes: Plan: Hba1c 5.9%. BSGs well-controlled but he is NPO. [place] novolog SSI as needed. (4) Anxiety: Plan: Cont buspar prn. (5) GERD (gastroesophageal reflux disease): Plan: Hold po PPI. Cont IV pepcid 20mg BID. (6) Sleep apnea: Plan: CPAP HS. (7) Hypertension: Plan: Cont holding ARB. BPs controlled. (8) Hyperlipidemia: Plan: Hold statin. 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 Declines nicoderm patch at this time Plan: updated by phone this evening Admission and Anticipated Discharge Date Admission Date: July 10, 2021 Subjective pt had significant pain & bloating this am necessitating adjustment in dilaudid once again went for a walk - passed a little gas - and felt better following such no vomiting; some fleeting nausea this am no dyspnea no fevers feels a little better since yesterday, and appetite might be slightly improved Review of Systems Review of Systems: gen - no fevers or chills cv - no chest pain pulm - no cough or dyspnea or LYMAN GI - ongoing abd pain and bloating Physical Exam Physical Exam: gen - morbidly obese, looks ill but nontoxic mouth - MMM neck - no JVD heart - RRR, s1 s2, no murmur lungs - CTA b/l abd - distended, BS+ (maybe slightly louder today), tender suprapubic region, no peritoneal signs ext - no edema, pulses 2+ b/l psych - a/o x 3 Results & Data Results & Data ([facility]) Vital Signs (Past 12 Hours) Vital Signs Temp Pulse Resp BP Pulse Ox 07/11/21 14:27 36.8 C 107 H 18 106/70 95 Laboratory Results Laboratory Results - last 24 hr 07/10/21 07/11/21 07/11/21 23:50 05:49 05:49 WBC 14.66 H RBC 3.95 L Hgb 12.8 L Hct 36.4 L MCV 92.2 MCH 32.4 MCHC 35.2 RDW Std Deviation 44.7 RDW Coeff of Brian 13.2 Plt Count 268 MPV 10.5 H Immature Gran % (Auto) 0.2 Neut % (Auto) 84.5 Lymph % (Auto) 6.7 [place] % (Auto) 8.5 Eos % (Auto) 0.0 Baso % (Auto) 0.1 Neut # (Auto) 12.40 H Lymph # (Auto) 0.98 L [place] # (Auto) 1.24 H Eos # (Auto) 0.00 Baso # (Auto) 0.01 Immature Gran # (Auto) 0.03 H Sodium 137 Potassium 4.3 Chloride 104 Carbon Dioxide 26 Anion Gap 7 BUN 15 Creatinine 0.90 Est Cr Clr Drug Dosing 129.8 Est GFR ( Amer) 111.0 Est GFR (Non-Af Amer) 95.8 BUN/Creatinine Ratio 16.7 Glucose 104 H POC Glucose 96 Calcium 8.8 Iron TIBC Unsaturated IBC Transferrin % Sat Ferritin 769.1 H Vitamin B12 Folate 07/11/21 07/11/21 07/11/21 05:49 05:49 06:20 WBC RBC Hgb Hct MCV MCH MCHC RDW Std Deviation RDW Coeff of Brian Plt Count MPV Immature Gran % (Auto) Neut % (Auto) Lymph % (Auto) [place] % (Auto) Eos % (Auto) Baso % (Auto) Neut # (Auto) Lymph # (Auto) [place] # (Auto) Eos # (Auto) Baso # (Auto) Immature Gran # (Auto) Sodium Potassium Chloride Carbon Dioxide Anion Gap BUN Creatinine Est Cr Clr Drug Dosing Est GFR ( Amer) Est GFR (Non-Af Amer) BUN/Creatinine Ratio Glucose POC Glucose 108 H Calcium Iron 22 L TIBC 227 L Unsaturated IBC 205 Transferrin % Sat 10 L Ferritin Vitamin B12 214 Folate 15.33 07/11/21 07/11/21 12:11 17:56 WBC RBC Hgb Hct MCV MCH MCHC RDW Std Deviation RDW Coeff of Brian Plt Count MPV Immature Gran % (Auto) Neut % (Auto) Lymph % (Auto) [place] % (Auto) Eos % (Auto) Baso % (Auto) Neut # (Auto) Lymph # (Auto) [place] # (Auto) Eos # (Auto) Baso # (Auto) Immature Gran # (Auto) Sodium Potassium Chloride Carbon Dioxide Anion Gap BUN Creatinine Est Cr Clr Drug Dosing Est GFR ( Amer) Est GFR (Non-Af Amer) BUN/Creatinine Ratio Glucose POC Glucose 114 H 106 H Calcium Iron TIBC Unsaturated IBC Transferrin % Sat Ferritin Vitamin B12 Folate PG Care Time/CCT Total # of Minutes Spent Total Time Spent with Patient: Total time spent is greater than 50% in coordination of care (as documented) at patient's floor/unit and/or counseling patient: Coding Level of Care Code 40323 Subseq Hosp Care Lvl 2 Diagnoses Acute diverticulitis K57.92 Ileus K56.7 Prediabetes R73.03 Anxiety F41.9 GERD (gastroesophageal reflux disease) K21.9 Sleep apnea G47.30 Hypertension I10 Hyperlipidemia E78.5 Morbid obesity with BMI of 40.0-44.9, adult E66.01; Z68.41 Anemia D64.9 DVT prophylaxis Z29.9 Tobacco dependence F17.200
[2021-07-12] MEDS: HYDROmorphone INJ 0.5 MG/0.5 ML SYR IV PRN (00:29)
[2021-07-12] MEDS: MEROPENEM 500 MG in SYRINGE 0 ML IV SCH ×5 (00:31→23:46)
[2021-07-12] MEDS: LACTATED RINGER'S 1,000 ML IV SCH ×3 (00:44→18:11)
[2021-07-12 07:10] LABS: Basophils # (auto) 0.01 K/uL (0-0.2); Basophils % (auto) 0.1 %; Eosinophils # (auto) 0.02 K/uL (0-0.5); Eosinophils % (auto) 0.2 %; Hematocrit (blood only) 37.2 % (42-52); Hemoglobin 12.4 g/dL (14.0-18.0); Immature Granulocytes # (auto) 0.03 K/uL (0.00-0.02); Immature Granulocytes % (auto) 0.3 %; Lymphocytes # (auto) 1.06 K/uL (1.2-3.4); Lymphocytes % (auto) 8.9 %; Mean Corpuscular Hemoglobin 30.2 pg (25-34); Mean Corpuscular Hgb Conc 33.3 g/dL (32-36); Mean Corpuscular Volume 90.7 fL (80-100); Mean Platelet Volume 10.5 fL (7.4-10.4); Monocytes # (auto) 1.23 K/uL (0.11-0.59); Monocytes % (auto) 10.3 %; Neutrophils # (auto) 9.58 K/uL (1.4-6.5); Neutrophils % (auto) 80.2 %; Platelet Count 294 K/uL (130-400); RDW Coefficient of Variation 13.1 % (11.5-14.5); RDW Standard Deviation 43.7 fL (36.4-46.3); White Blood Count 11.93 K/uL (4.8-10.8)
[2021-07-12 07:35] LABS: BUN Creatinine Ratio 18.3 (10-20); Calcium 8.8 mg/dl (8.5-10.1); Creatinine Clr Calc Pharmacy 142.4 ml/min; Est GFR (African American) 115.4 ml/min; Est GFR (Non-African American) 99.6 ml/min; Potassium 3.8 mmol/L (3.5-5.1)
[2021-07-12] MEDS: FAMOTIDINE 20 MG in SYRINGE 3 ML IV SCH ×2 (10:23→20:35)
[2021-07-12] MEDS: CYANOCOBALAMIN (B-12) 500 MCG TABLET PO SCH (10:23)
[2021-07-12] MEDS: ENOXAPARIN INJ 40 MG/0.4 ML SYR SQ SCH ×2 (10:24→20:35)
[2021-07-12] MEDS: ADVANCED PROBIOTIC 1250 MG CAPSULE PO SCH (10:24)
--- NOTE | 2021-07-12 21:43 | Hospitalist Progress Note ---
Date of Service July 12, 2021 Assessment & Plan (1) Acute diverticulitis: Plan: Sigmoid diverticulitis with microperforation. No abscess or macroperforation. WBC count improved today. Clinically improved. Start clears. Lower IV fluid rate. Cont meropenem IV. repeat labs in am. (2) Ileus: Plan: 2nd to #1. IMPROVED. Supportive care. Cont to ambulate. (3) Prediabetes: Plan: Hba1c 5.9%. BSGs well-controlled can stop BSG checks (4) Anxiety: Plan: Cont buspar prn. (5) GERD (gastroesophageal reflux disease): Plan: Hold po PPI. Cont IV pepcid 20mg BID. (6) Sleep apnea: Plan: CPAP HS. (7) Hypertension: Plan: Cont holding ARB. BPs controlled. (8) Hyperlipidemia: Plan: Hold statin. (9) Morbid obesity with BMI of 40.0-44.9, adult: Plan: BMI 43 (10) Anemia: Plan: mild, normocytic Fe studies c/w inflammation/acute phase folate wnl b12 deficient -- started oral B12 supplementation 1000mcg daily (11) DVT prophylaxis: Plan: lovenox 40mg BID given morbid obesity (12) Tobacco dependence: Plan: Special Shopper to quit Declines nicoderm patch at this time (13) Injury of toe: Plan: RIGHT 4th toe check x-rays - r/o fracture Plan: updated by phone yesterday evening Admission and Anticipated Discharge Date Admission Date: July 10, 2021 Subjective pt "feels much better" today tiny stool this am no nausea has appetite lower abd pain IMPROVED bloating IMPROVED ready to eat! he mentioned hitting his 4th toe, right foot, on the IV pole and now it is sore Review of Systems Review of Systems: gen - no fevers, no chills cv - no cp pulm - no cough or dyspnea Physical Exam Physical Exam: gen - morbidly obese, looks much better today mouth - MMM neck - no JVD heart - RRR, s1 s2, no murmur lungs - CTA b/l abd - distension improved, BS+, tenderness much better ext - no edema, pulses 2+ b/l psych - a/o x 3 Results & Data Results & Data ([facility]) Vital Signs (Past 12 Hours) Vital Signs Temp Pulse Resp BP Pulse Ox 07/12/21 15:24 36.9 C 99 H 18 143/83 H 95 Laboratory Results Laboratory Results - last 24 hr 07/12/21 07/12/21 06:22 06:22 WBC 11.93 H RBC 4.10 L Hgb 12.4 L Hct 37.2 L MCV 90.7 MCH 30.2 MCHC 33.3 RDW Std Deviation 43.7 RDW Coeff of Brian 13.1 Plt Count 294 MPV 10.5 H Immature Gran % (Auto) 0.3 Neut % (Auto) 80.2 Lymph % (Auto) 8.9 [place] % (Auto) 10.3 Eos % (Auto) 0.2 Baso % (Auto) 0.1 Neut # (Auto) 9.58 H Lymph # (Auto) 1.06 L [place] # (Auto) 1.23 H Eos # (Auto) 0.02 Baso # (Auto) 0.01 Immature Gran # (Auto) 0.03 H Sodium 137 Potassium 3.8 Chloride 103 Carbon Dioxide 25 Anion Gap 9 BUN 15 Creatinine 0.82 Est Cr Clr Drug Dosing 142.4 Est GFR ( Amer) 115.4 Est GFR (Non-Af Amer) 99.6 BUN/Creatinine Ratio 18.3 Glucose 105 H Calcium 8.8 PG Care Time/CCT Total # of Minutes Spent Total Time Spent with Patient: Total time spent is greater than 50% in coordination of care (as documented) at patient's floor/unit and/or counseling patient: Coding Level of Care Code 87493 Subseq Hosp Care Lvl 2 Diagnoses Acute diverticulitis K57.92 Ileus K56.7 Prediabetes R73.03 Anxiety F41.9 GERD (gastroesophageal reflux disease) K21.9 Sleep apnea G47.30 Hypertension I10 Hyperlipidemia E78.5 Morbid obesity with BMI of 40.0-44.9, adult E66.01; Z68.41 Anemia D64.9 DVT prophylaxis Z29.9 Tobacco dependence F17.200 Injury of toe S99.929A
[2021-07-13] MEDS ORDERED: ACETAMINOPHEN 325 MG TAB PO PRN (01:50)
[2021-07-13] MEDS: MEROPENEM 500 MG in SYRINGE 0 ML IV SCH ×2 (05:50→11:32)
[2021-07-13] MEDS: LACTATED RINGER'S 1,000 ML IV SCH (08:41)
[2021-07-13] MEDS: CYANOCOBALAMIN (B-12) 500 MCG TABLET PO SCH (09:29)
[2021-07-13] MEDS: ENOXAPARIN INJ 40 MG/0.4 ML SYR SQ SCH (09:29)
[2021-07-13] MEDS: FAMOTIDINE 20 MG in SYRINGE 3 ML IV SCH (09:29)
[2021-07-13] MEDS: ADVANCED PROBIOTIC 1250 MG CAPSULE PO SCH (09:29)
[2021-07-13 10:59] LABS: Basophils # (auto) 0.02 K/uL (0-0.2); Basophils % (auto) 0.2 %; Eosinophils # (auto) 0.04 K/uL (0-0.5); Eosinophils % (auto) 0.4 %; Hematocrit (blood only) 37.9 % (42-52); Hemoglobin 12.7 g/dL (14.0-18.0); Immature Granulocytes # (auto) 0.05 K/uL (0.00-0.02); Immature Granulocytes % (auto) 0.5 %; Lymphocytes # (auto) 1.46 K/uL (1.2-3.4); Mean Corpuscular Hemoglobin 30.3 pg (25-34); Mean Corpuscular Hgb Conc 33.5 g/dL (32-36); Mean Corpuscular Volume 90.5 fL (80-100); Mean Platelet Volume 10.1 fL (7.4-10.4); Monocytes # (auto) 1.08 K/uL (0.11-0.59); Monocytes % (auto) 10.4 %; Neutrophils # (auto) 7.77 K/uL (1.4-6.5); Neutrophils % (auto) 74.5 %; Platelet Count 328 K/uL (130-400); RDW Coefficient of Variation 13.2 % (11.5-14.5); RDW Standard Deviation 43.2 fL (36.4-46.3); Red Blood Count 4.19 M/uL (4.7-6.1); White Blood Count 10.42 K/uL (4.8-10.8)
[2021-07-13 11:08] LABS: BUN Creatinine Ratio 16.5 (10-20); Calcium 9.1 mg/dl (8.5-10.1); Creatinine Clr Calc Pharmacy 137.4 ml/min; Est GFR (African American) 113.7 ml/min; Est GFR (Non-African American) 98.1 ml/min; Magnesium 2.1 mg/dl (1.7-2.4); Potassium 3.9 mmol/L (3.5-5.1)
--- NOTE | 2021-07-13 13:44 | Discharge Summary ---
Date of Service July 13, 2021 Admission HPI Per Admitting Provider 56yo male with history of HTN, pre-DM, MINNIE, tobacco use, morbid obesity, and known diverticular disease based on 06/2018 colonoscopy who presents with lower abdominal pain x 3 days. Pain is suprapubic in location and radiates to the b/l lower quadrants. Sharp in character especially with movement. No nausea or vomiting. Has felt bloated in the upper abdomen - describes this as a "pressure." His appetite has been less than usual but he did eat sausage for dinner last pm. This made his abdominal pain worse. Last oral intake was early this AM - coffee along with bananas. This, too, made his stomach feel worse. Denies fevers or chills. Upon ER presentation he underwent CT abd/pelvis showing acute sigmoid diverticulitis with microperforation along with small bowel dilatation c/w ileus. Patient initially had told staff he wished to be discharged home but ultimately was agreeable to admission. Discharge Exam gen - morbidly obese, looks much better today mouth - MMM neck - no JVD heart - RRR, s1 s2, no murmur lungs - CTA b/l abd - distension improved, BS+, tenderness much better ext - no edema, pulses 2+ b/l psych - a/o x 3 Discharge Data Allergies Allergy/AdvReac Type Severity Reaction Status Date / Time Penicillins Allergy Intermediate ANGIOEDEMA Verified 04/28/21 08:24 Consultations 07/10/21 07:15 ED Decision to Admit Stat 07/10/21 08:53 Consult Gastroenterology Routine Ordered Studies 07/10/21 04:53 CT abd pelvis IV con only Urgent Hospital Course (1) Acute diverticulitis: Sigmoid diverticulitis with microperforation. No abscess or macroperforation. WBC count improved today. Clinically improved. Start clears. Lower IV fluid rate. Cont meropenem IV. repeat labs in am. (2) Ileus: 2nd to #1. IMPROVED. Supportive care. Cont to ambulate. (3) Prediabetes: Hba1c 5.9%. BSGs well-controlled can stop BSG checks (4) Anxiety: Cont buspar prn. (5) GERD (gastroesophageal reflux disease): Hold po PPI. Cont IV pepcid 20mg BID. (6) Sleep apnea: CPAP HS. (7) Hypertension: Cont holding ARB. BPs controlled. (8) Hyperlipidemia: Hold statin. (9) Morbid obesity with BMI of 40.0-44.9, adult: BMI 43 (10) Anemia: mild, normocytic Fe studies c/w inflammation/acute phase folate wnl b12 deficient -- started oral B12 supplementation 1000mcg daily (11) DVT prophylaxis: lovenox 40mg BID given morbid obesity (12) Tobacco dependence: Dental Insurance Biller to quit Declines nicoderm patch at this time (13) Injury of toe: RIGHT 4th toe check x-rays - r/o fracture updated by phone yesterday evening Discharge Plan Discharge Items Patient Disposition: Home - Self-Care Reason For Visit: ACUTE DIVERTICULITIS Discharge Diagnosis: Acute sigmoid diverticulitis with microperforation - resolving Vitamin B12 deficiency Condition on Discharge: Good Activity: As commented below Activity Comment: gradually increase your activities over the next 7 days Lifting: No more than 10 pounds Bathing: No limitations Sexual Activity: Wait until after follow-up appointment Exercise/Sports: Wait until after follow-up appointment Driving/Machine Use: Resume 1 day after discharge Non-emergency contact: Primary Care Provider and Ignition Expert Call non-emergency contact if: you have any medication questions, your symptoms worsen, your pain is not controlled, your pain is worsening, your pain is concerning for you and you have a fever Follow-up/Referrals: Shanna Arellano CRNP [Nurse Practitioner] - (see Ms Arellano ideally this Wednesday for hospital follow-up ) David Zurita MD [Physician] - (1-2 weeks with [facility] ) Diet: Full liquid Addtl Attending Provider Instructions: Mr Madrid, Dustin were hospitalized at [facility] for acute sigmoid diverticulitis with microperforation (small bits of air escaped from the colon and into the area immediately outside the colon). This was treated with IV fluids, IV antibiotics, pain medications, bowel rest, and time. You made excellent progress with the above treatment plan. You were started on clear liquids on 07/12/21 and you tolerated them well. On 07/13/21 we advanced you to a full liquid diet. Your abdominal pain is essentially resolved at this time. Recommendations - 1. Diet - * TODAY, TOMORROW, and the first portion of WEDNESDAY please follow a Full liquids diet (see handout) * A full liquids diet is all liquids (water, juice, coffee, gatorade, jello, Georgian Ice, etc PLUS dairy products * Focus on really good hydration over the next 3-5 days * Mid-day WEDNESDAY you can transition over to a LOW FIBER (low residue) diet (see handout) * GRADUALLY introduce low fiber solid foods into the diet; go SLOW with this!! This is very important as you want to avoid a relapse with your diverticulitis 2. Once over to a low fiber diet please follow such for an additional 10 days. 3. After that 10-day period is up you can gradually get back to a more "normal" diet. 4. NO ALCOHOL over the next 2 weeks. 5. AVOID fast foods, fried foods, frozen goods, etc over the next 2 weeks. 6. Antibiotics - * cipro 500mg twice daily x 10 days, first dose TONIGHT * metronidazole 500mg three times daily x 10 days, first dose TONIGHT * probiotics once daily x 10 days * again - DO NOT DRINK alcohol while on the antibiotics 7. You were mildly anemic upon admission. We found that you are deficient on vitamin B12. Please take [id number] vitamin B12 1000mcg daily. This can be purchased at any pharmacy. Please take the vitamin B12 supplement for about 1 year. 8. STOP your blood pressure pill "irbesartan" at this time as your blood pressures have been normal without it. 9. May use ondansetron nausea medication - 4mg every 6 hours as needed - for nausea/vomiting. 10. Tylenol over the counter can be used for aches/pains. 11. You are going to need a colonoscopy in about 8 weeks per [facility]. Follow-up - see separate section Return to [facility] if - * you have recurrent, severe abdominal pain * you have vomiting and you are unable to eat/drink * you develop severe diarrhea * you develop significant blood in the stools * any other concerns Continue to feel better! Dr Phelan Pending Studies at Discharge: No Stand-Alone Forms: My [facility], Work/School Release, Smoking Cessation Medications and DC Order Prescriptions: New ciprofloxacin HCl [Cipro] 500 mg tablet 500 mg PO BID 10 Days Qty: 20 RF: 0 metronidazole 500 mg tablet 500 mg PO Q8H 10 Days Qty: 30 RF: 0 ondansetron 4 mg tablet,disintegrating 4 mg PO Q6H PRN (Reason: nausea and vomiting) Qty: 10 RF: 0 mecobalamin (vitamin B12) 1,000 mcg tablet,disintegrating 1,000 mcg sublingual DAILY Qty: 90 RF: 3 Saccharomyces boulardii 250 mg capsule 250 mg PO DAILY 10 Days Qty: 10 RF: 0 Continued (DME) CPAP Supplies Misc See Rx Instructions .ROUTE .MEDSUPPLY Qty: 1 RF: 0 atorvastatin 40 mg tablet 80 mg PO HS Qty: 90 RF: 3 omeprazole 20 mg tablet,delayed release (DR/EC) 20 mg PO DAILY RF: 0 buspirone 5 mg tablet 5 mg PO BID PRN (Reason: Agitation) Qty: 60 RF: 5 aspirin 81 mg tablet,chewable 81 mg PO 2XWK RF: 0 Discontinued irbesartan 150 mg tablet 150 mg PO DAILY Qty: 90 RF: 3 naproxen sodium [Aleve] PO RF: 0 Discharge Orders: Discharge Order (Routine); Ordered 07/13/21 Ordered By: Trenton Benedict/Other Patient Handouts: Low-Fiber Diet, Diverticulosis and Diverticulitis, Diverticulitis Dc, Kicking the Smoking Habit, ED Full Liquid Diet Admission Data Admit Date/Time: 07/10/21 07:46 Attending Provider: Trenton Phelan Admit Provider: Trenton Phelan Primary Care Provider: PCP,NO Other Providers: David Zurita ; Trenton Phelan Coding Diagnoses Acute diverticulitis K57.92 Ileus K56.7 Prediabetes R73.03 Anxiety F41.9 GERD (gastroesophageal reflux disease) K21.9 Sleep apnea G47.30 Hypertension I10 Hyperlipidemia E78.5 Morbid obesity with BMI of 40.0-44.9, adult E66.01; Z68.41 Anemia D64.9 DVT prophylaxis Z29.9 Tobacco dependence F17.200 Injury of toe S99.929A
--- NOTE | 2021-07-13 14:13 | XRay Report ---
RIGHT FOOT 3 VIEWS CLINICAL HISTORY: Fourth toe injury. FINDINGS: 3 views of the right foot are obtained. No prior studies are available for comparison at th e time of dictation. The skeletal structures are well mineralized. No fracture is seen. Mild degenera tive change is noted at the first metatarsophalangeal joint. The joint spaces are otherwise preserved . There are small dorsal and plantar calcaneal enthesophytes. The overlying soft tissues are normal a s imaged. IMPRESSION: No acute bony abnormality is identified. Electronically signed by: Jairo Hill M.D. 07/13/2021 2:11 PM
== END 2021-07-13 14:12 | disposition home or self-care (01) | DRG 392 ==
LOC: ED 04:31 → 3W 07:46

== ENCOUNTER 2024-03-14 06:11 | Inpatient (IN) ==
--- NOTE | 2024-03-09 11:56 | Anesthesiology Consultation ---
Date of Service March 09, 2024 Assessment & Plan (1) Encounter for pre-operative examination: Chart Review Chart Review: Patient NOT seen in Pre Admission Testing and entry engineer initiated -Case D/W , re: recent amaurosis fugax thought to be 2/2 non-arteritic anterior ischemic optic neuropathy, negative CVA w/u, ECHO showing LA mass. Okay to proceed as scheduled -Note: pt was advised to trim/shave facial hair Infectious Disease screening: Per PAT nursing assessment on 03/09/24, No known infectious disease contacts in past 10 days or current infectious disease symptoms. No recent travel outside the country. History Surgery Operation Date: 03/14/24 07:30 Proposed Procedures p Transesophageal Echo w/Anesthesia - Mariano Simms DO Height/Weight Height: 5 ft 10 in Weight: 133.81 kg Allergies Allergy/AdvReac Type Severity Reaction Status Date / Time morphine Allergy Severe chest Verified 03/09/24 09:46 tightness Penicillins Allergy Intermediate ANGIOEDEMA Verified 03/09/24 09:46 Medications Home Medications Medication Instructions Recorded Confirmed Last Taken omeprazole 20 mg tablet,delayed 20 mg PO QAM 01/10/19 03/09/24 07/17/19 06:00 release aspirin 81 mg chewable tablet 81 mg PO QAM 11/16/19 03/09/24 Unknown mecobalamin (vitamin B12) 1,000 1,000 mcg sublingual DAILY #90 tabs 07/13/21 03/09/24 Unknown mcg disintegrating tablet,sublingual CPAP Supplies #1 ea 03/04/22 03/04/22 Unknown atorvastatin 40 mg tablet 40 mg PO QAM 03/02/24 03/09/24 Unknown buspirone 5 mg tablet 5 mg PO UD PRN Anxiety 03/02/24 03/09/24 Unknown irbesartan 150 mg tablet 150 mg PO QAM 03/02/24 03/09/24 Unknown acetaminophen 500 mg tablet 1,500 mg PO QAM 03/09/24 03/09/24 Unknown ibuprofen 200 mg tablet 400 mg PO QAM PRN Pain 03/09/24 03/09/24 Unknown Past Medical History Medical History (Updated 03/09/24 @ 12:22 by Carly Carvajal PA-C) Anxiety Family history of blood clots Mother (who has lymphoma) currently has blood clots in both legs (on eliquis) and oldest daughter has clot in liver currently. pt. has never had genetic testing for clotting GERD (gastroesophageal reflux disease) History of diverticulitis Hx of blurred vision (03/06/24) pt presented to [facility] ED 03/02/24 c/o acute onset L partial field of vision blurring and eye pain; w/u was unremarkable. 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 VA mostly back to normal per pt... 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 ECHO showed a LA mass; and pt saw [facility] 03/07/24, reported ongoing visual deficit L eye, and scheduled for BHUMIKA Morbid obesity Ocular migraine Osteoarthritis leo in b/l knees, gets cortisone shots Prediabetes diet control, no meds Sleep apnea CPAP Past Family History Family History Father Family history of diabetes mellitus Daughter Family hx of colon cancer Grandmother Ovarian cancer Uncle Myocardial infarction Mother Brain cancer OPTIMIZATION ANALYST Lymphoma Other Breast cancer Colorectal cancer Coronary heart disease Heart disease Hypertension No family history of adverse response to anesthesia Denies family history of Prostate cancer Past Surgical History Surgical History History of arthroscopy of both knees History of cardiac cath (2011) 2011 @ [facility] no stents- no [place] (had chest pain/diaphoresis)- follows cardio mariano shah History of colonoscopy 06/2018 - sigmoid diverticular disease, 2 polyps History of surgery on arm left bicep tendon repair - Wally Mohamud MD History of tonsillectomy and adenoidectomy History of tooth extraction History of wisdom tooth extraction Status post myringotomy with tube placement of both ears Social History Smoking Status: Former smoker tobacco type: cigarettes Smoking cigarettes per day: 15 Do You Dip or Chew Tobacco: No Smoking End Date: 2019 Hx Alcohol Use: No Alcohol type: beer alcohol intake frequency: holidays/special occasions only Hx Substance Use: No substance use type: does not use Lab Results Anesthesia Preop Results Results Anesthesia Widget: WBC 6.57 K/ul (4.8-10.8) 03/02/24 Hgb 13.5 g/dl (14.0-18.0) L 03/02/24 Hct 40.1 % (42.0-52.0) L 03/02/24 Plt 299 K/uL (130-400) 03/02/24 Na 140 mmol/L (136-145) 03/02/24 K 4.0 mmol/L (3.5-5.1) 03/02/24 Cl 107 mmol/L (98-107) 03/02/24 CO2 26 mmol/L (21-32) 03/02/24 BUN 23 mg/dl (6-23) 03/02/24 Creat 0.94 mg/dl (0.6-1.4) 03/02/24 Glucose Level 124 mg/dl (70-99(Fasting)) H 03/02/24 PT 10.0 Seconds (9.0-12.0) 03/02/24 PTT 25 Seconds (21-31) 03/02/24 INR 0.9 (0.9-1.1) 03/02/24 HA1c 6.1 % (4.5-5.6) H 03/02/24 Testing Electrocardiogram Date: 03/07/24 Findings: + NSR @ (90bpm) Chest X-Ray Date: 03/02/24 Findings: + NAD CM is noted Echocardiogram Date: 03/06/24 EF: 55-59% RWMA: + none *there is a 1.6cm x 1 cm mobile echodensity in the left atrium that appears to be adherent to the interatrial septum or anterior mitral valve leaflet. Differential diagnosis includes left atrial myxoma, vegetation, or other cardiac mass* mild AR. mild cLVH. Gr I DD. Other Testing 03/07/24 Brain MRI: FINDINGS: The ventricles and sulci are normal in size and configuration for age. There is no evidence of an acute infarct, hemorrhage, or mass lesion. No extra-axial fluid collection or midline shift. The basal cisterns are patent. The flow voids of the major intracranial arteries are grossly preserved. There are no suspicious enhancing abnormalities of the brain. A small focus of susceptibility artifact of the right cerebellar hemisphere may be due to a chronic microhemorrhage. No acute calvarial or orbital abnormality. There is mild scattered paranasal sinus mucosal thickening. The mastoid air cells are clear. IMPRESSION: No acute intracranial abnormality or suspicious lesion. 03/02/24 Head/Neck CTA: CT ANGIOGRAM OF THE HEAD AND NECK: Bovine morphology of the thoracic aortic arch. There is patency of the innominate and imaged subclavian arteries. The common and internal carotid arteries are patent. There is moderate atherosclerosis of the carotid bulbs without significant stenosis. The bilateral internal carotid arteries are patent. The ophthalmic arteries appear patent. The bilateral anterior and middle cerebral arteries are also patent. The vertebrobasilar system and posterior cerebral arteries are widely patent. There is no aneurysm, high-grade stenosis, or proximal branch occlusion identified. Dural sinuses appear patent. Lung apices are clear. No pneumothorax. Unremarkable soft tissues. No acute fracture. Moderate polypoid mucosal thickening of the left maxillary sinus. Orbits appear unremarkable. IMPRESSION: Unremarkable CTA of the head and neck. 03/02/[address]: Findings: The ventricles, basal cisterns, and cerebral sulci are normal. There is no acute intracranial hemorrhage or evidence of acute territorial infarction. Neither mass effect, shift of the midline structures, nor abnormal extra-axial fluid collections are shown. Imaged portions of the paranasal sinuses and mastoid air cells are clear. The orbits appear normal. There are no acute fractures of the calvaria or scalp swe lling. Impression: No acute intracranial hemorrhage, no evidence of acute territorial infarction or other acute intracranial disease process.
[2024-03-14] MEDS ORDERED: ePHEDrine sulfate 50 MG/5 ML SYR ONE (06:40)
[2024-03-14] MEDS ORDERED: PHENYLEPHRINE 100MCG/ML 5ML SYR ONE (06:40)
--- NOTE | 2024-03-14 07:18 | History & Physical Bridge Note ---
Date of Service March 14, 2024 History & Physical Bridge Note I have examined the patient, reviewed the History & Physical and in the interval since the performance of the History & Physical I have noted the following changes of clinical significance: no changes noted. Informed consent for BHUMIKA was obtained. The patient elects to proceed.
[2024-03-14] MEDS ORDERED: PROPOFOL IV EMULSION 10 MG/ML 20 ML VIAL IV ONE (08:03)
--- OUTSIDE RECORDS SUMMARY | 2024-03-14 08:03 | External Medical Summary ---
Author Name Unknown Address Unknown Organization K01:[facility] [place] [address] [place] [address] Laboratory Report Ordering Provider Test Date Status RONNI HENRY 03/07/2024 11:33:24 Final Observation Date Value Abnormality Reference (Units ) Status Erythrocyte sedimentation rate by Photometric method 03/07/2024 11:33:24 38 Above high normal <20 (mm/hour) Final Performing Location [facility] [place] [address] [place] [address]
--- OUTSIDE RECORDS SUMMARY | 2024-03-14 08:03 | External Medical Summary | Summary of Care ---
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 Name Role Phone Dar Barone MD Primary Care Provider [phone] Reason for Referral * Precert (Diagnostic Medical) (Within 10 days (routine)) - Pending Review Specialty Diagnoses / Procedures Referred By Rolando t Referred To Contact Cardiac Studies Diagnoses Cerebrovascular accident (CVA) due to embolism of anterior cerebral artery, unspecified blood vessel laterality (HCC) Cardiac mass Procedures TRANSESOPHAGEAL ECHO (COMPLETE) Mariano Simms DO [address] [place] [address] Phone: tel: fax: Referral ID Status Reason Start Date Expiration Date Visits Requested Visits Authorized [id number] Pending Review Precert 03/08/2024 999 999 * Precert (Within 24 hrs (call dept; emergent)) - Pending Review Specialty Diagnoses / Procedures Referred By Contgrace t Referred To Contact Radiology Diagnoses Cerebrovascular accident (CVA) due to embolism of anterior cerebral artery, unspecified blood vessel laterality (HCC) Cardiac mass Procedures MRI BRAIN W WO CONTRAST Mariano Simms DO [address] [place] [address] Phone: tel: fax: Referral ID Status Reason Start Date Expiration Date V isits Requested Visits Authorized [id number] Pending Review 03/07/2024 999 999 Reason for Visit * Reason Comments Consultation Encounter Details Date Type Department Care Team (Latest Contact Info) Description 03/07/2024 9:30 AM EST Office Visit Cardiology, [facility] [address] [place] [address] Mariano Simms DO [address] [place] [id number] Cerebrovascular accident (CVA) due to embolism of anterior cerebral artery, unspecified blood vessel laterality (HCC)*; Cardiac mass; Primary hypertension; Dyslipidemia Allergies Active Allergy Reactions Criticality Noted Date Comments Morphine High 07/17/2021 Other Reaction(s): chest tightness Penicillins High 07/17/2021 Other Reaction(s): ANGIOEDEMA documented as of this encounter (statuses as of 03/07/2024) Medications busPIRone HCl 5 MG Oral Tablet (Buspar) 04/28/2021 Active Vitamin B12 1000 MCG Oral Tablet Extended Release Take by mouth . Active Aspirin 81 MG Oral Tablet Delayed Release Take 1 Tablet by mouth in the morning. Active CPAP every night at bedtime . Active Acetaminophen 500 MG Oral Tablet (Tylenol Extra Strength) Take 1 Tablet by mouth every 6 hours as needed. Active Irbesartan 150 MG Oral Tablet (Avapro) TAKE ONE TABLET BY MOUTH IN THE MORNING 90 Tablet 3 03/06/2024 Active Atorvastatin Calcium 40 MG Oral Tablet (Lipitor) TAKE 1 TABLET BY MOUTH EVERY MORNING 90 Tablet 3 03/06/2024 Active Omeprazole 20 MG Oral Capsule Delayed Release (PriLOSEC) Take 1 capsule by mouth daily in the morning, 1 hour before the first meal of the day 90 Capsule 1 03/06/2024 Active documented as of this encounter (statuses as of 03/07/2024) Active Problems Problem Noted Date Diagnosed Date Primary osteoarthritis of both knees 01/03/2024 Prediabetes 01/03/2024 Class 3 severe obesity due t o excess calories with serious comorbidity and body mass index (BMI) of 45.0 to 49.9 in adult 02/26/2023 GERD (gastroesophageal reflux disease) 2 Primary hypertension 07/17/2021 documented as of this encounter (statuses as of 03/07/2024) Immunizations Name Administration Dates Next Due Seasonal Influenza, Trivalent, (IIV3), PF, (Fluz one) 01/03/2024 Zoster Vaccine Recombinant (Shingrix) 06/24/2023 ,03/10/2023 documented as of this encounter Social History Tobacco Use Types Packs/Day Years Used Date Smoking Tobacco: Former Cigarettes Q uit: 07/10/2021 Smokeless Tobacco: Never Alcohol Use Standard Drinks/Week Comments Never 0 (1 standard drink = 0.6 oz pur e alcohol) PHQ-2 Answer Date Recorded PHQ Adult Total Score 0 10/01/2023 Hunger Vital Sign Answer Date Recorded Within the past 12 months, y ou worried that your food would run out before you got the money to buy more. Never true 10/01/19 24 Within the past 12 months, t he food you bought just didn't last and you didn't have money to get more. Never true 10/01/2023 Childcare Answer Date Recorded Do you feel overwhelmed with taking care of a child, family member or friend? No 10/01/2023 Does your family need help f inding childcare? (Household - for ages 0-17 years) Not on file 10/01/2023 Clothing Answer Date Recorded Have you been unable to get clothing when it was really needed? No 10/01/2023 Is your family able to get c lothes or diapers when needed? (Household - for ages 0-17 years) Not on file 10/01/2023 Personal Safety Answer Date Recorded Do you feel unsafe or have concerns for your saf ety? No 10/01/2023 Do you have concerns for you r family's safety? (Household - for ages 0-17 years) Not on file 10/01/2023 Utilities Answer Date Recorded Do you have trouble paying y our heating, water, or electric bill? No 10/01/2023 Is your family able to pay t he heat, water, or electric bill? (Household - for ages 0-17 years) Not on file 10/01/2023 Does your family have access to good internet? (Household - for ages 0-17 years) Not on file 10/01/2023 Employment Status Answer Date Recorded Are you unemployed or without regular income? No 10/01/2023 Does the household have a re gular source of income? (Household - for ages 0-17 years) Not on file 10/01/2023 Social Connections Answer Date Recorded How often do you feel lonely or isolated from th ose around you? Never 10/01/2023 Financial Resource Strain Answer Date R ecorded Do you have any trouble payi ng for your medications, or do you think you might in the future? No 10/01/2023 Does your family have troubl e paying for medicine? (Household - for ages 0-17 years) Not on file 10/01/2023 Transportation Needs Answer Date Record ed Do you have trouble getting a ride to medical visits or work? (Adult - for ages 18 years and over) Not on file 10/01/2023 Does your family have a hard time getting a ride to doctors visits? (Household - for ages 0-17 years) Not on file 10/01/2023 Has lack of transportation k ept you from medical appointments, meetings, work, or from getting things needed for daily living? Check all that apply. No 10/01/2023 Do you (or your family) have trouble finding or paying for a ride (transportation)? (Household - for ages 0-17 years) Not on file 10/01/2023 Housing Stability Answer Date Recorded Do you currently live in a s helter or have no steady place to sleep at night? No 10/01/2023 Do you think you are at risk of becoming homeless? (Adult - for ages 18 years and over) Not on file 10/01/2023 Does your family worry about paying for your home or becoming homeless? (Household - for ages 0-17 years) Not on file 0 10/01/2023 Are you homeless or worried that you might be in the future? No 10/01/2023 Are you (or your family) odalys eless or worried that you might be in the future? (Household - for ages 0-17 years) Not on file Food Insecurity Answer Date Recorded Do you need food for this week? No 10/01/2023 Are you able to get enough f ood for your family? (Household - for ages 0-17 years) Not on file 10/01/2023 Does your family need food t his week? (Household - for ages 0-17 years) Not on file 10/01/2023 Do you always have enough fo od for your family? (Household - for ages 0-17 years) Not on file 10/01/2023 Sex and Gender Information Value Date Recorded Sex Assigned at Not on file Legal Sex Male 6:14 AM EST Gender Identity Not on file Sexual Orientation Not on file documented as of this encounter Last Filed Vital Signs Vital Sign Reading Time Taken Comments Blood Pressure 138/84 03/07/2024 9:07 AM EST Pulse 80 03/07/2024 9:07 AM EST Temperature - - Respiratory Rate 16 03/07/2024 9:07 AM EST Oxygen Saturation - - Inhaled Oxygen Concentration - - Weight 133.8 kg (295 lb) 03/07/2024 9:07 AM EST Height - - Body Mass Index 43.56 10/01/2023 2:33 PM EDT documented in this encounter Progress Notes * Mariano Simms, DO - 03/07/2024 9:13 AM EST 03/07/2024 Cardiology Consultation History of Present Illness Juarez Henley , a 58-year-old male with a past medical history of obesity, hypertension, prediabetes, and obstructive sleep apnea, presents for a cardiology consultation as referred by Dr Zimmerman for evaluation of abnormal findings on an echocardiogram performed yesterday. 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 The symptoms began with a sensation of pressure behindthe left eye, followed by dizziness and partial vision loss in the same eye. The patient also experienced a severe headache, which persisted during a drive and after returning to the workplace. Despite removing contact lenses and switching to glasses, the visual disturbance and headache remained, prompting a visit to the emergency department. At the hospital, the patient underwent at CT and CTA of the head and neck, blood work, and eye examination, which did not reveal any abnormalities. However, a subsequent visit to an carpenter supervisor and retina specialist with concerns of stroke involving the optic nerve. The patient was then referred to a contestant coordinator for further evaluation. The patient reports a residual visual deficit in the left eye, which appears to be improving. The patient has been largely sedentary since the incident due to fear of exacerbating the condition. The patient has a family history of heart disease, with an uncle who has had multiple heart attacksand another who of a heart attack at a young age. The patient's mother also has a heart murmurand a history of blood clots with recent admission for bilateral lower extremity DVTs. The patient has been on aspirin for approximately 20 years due to this family history. The patient also reports a recent episode of severe abdominal pain due to diverticulitis, which occurred about three weeks prior to the current consultation. The patient did not seek hospital treatment for this episode, but reports that it was intense and resulted in some bleeding. The patient has a history of diverticulitis and experiences chronic abdominal pain due to this condition. 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 The patient also reports poor sleep and frequent headaches. Past Medical History - Obesity with body mass index of 43.6 kg per meter square, weight 295 pounds - Hypertension - Prediabetes - Obstructive sleep apnea - History of diverticulitis -osteoarthritis of the knees bilaterally Family History - Uncle had heart disease, 3 or 4 heart attacks - another uncle of heart attack at the age of 43 - Son has heart murmur - Mother has heart murmur - Mother has cancer lymphoma - Mother has blood clots in both legs Past Surgical History: Procedure Laterality Date COLONOSCOPY, DIAGNOSTIC (RECTUM) 12/05/2021 benign adenomatous polyp, diverticulosis, repeat 5 yrs / COLONOSCOPY FLEXIBLE PROXIMAL DIAGNOSTIC performed by Anup Garcia MD at ENDOSCOPY [facility] FLUORESCEIN ANGIOGRAPHY MULTIFRAME 03/06/2024 FA OS>OD, Dr. Zimmerman (Right hand) KNEE ARTHROSCOPY EDU Bilateral OTHER (INFORMATION) act 112 signed - Dr. Zimmerman CO REPAIR BICEPS LONG TENDON Left Social History Tobacco Use Smoking status: Former Current packs/day: 0.00 Types: Cigarettes Quit date: 07/10/2021 Years since quittin.6 Smokeless tobacco: Never Vaping Use Vaping status: Never Used Substance Use Topics Alcohol use: Never Drug use: Never Complete Review of Systems is as stated above, negative, or noncontributory. Review of patient's allergies indicates: Allergen Reactions Morphine Other Reaction(s): chest tightness Penicillins Other Reaction(s): ANGIOEDEMA Current Outpatient Medications Medication Sig Dispense Refill busPIRone HCl 5 MG Oral Tablet (Buspar) Vitamin B12 1000 MCG Oral Tablet Extended Release Take by mouth . Aspirin 81 MG Oral Tablet Delayed Release Take 1 Tablet by mouth in the morning. CPAP every night at bedtime . Acetaminophen 500 MG Oral Tablet (Tylenol Extra Strength) Take 1 Tablet by mouth every 6 hours as needed. Irbesartan 150 MG Oral Tablet (Avapro) TAKE ONE TABLET BY MOUTH IN THE MORNING 90 Tablet 3 Atorvastatin Calcium 40 MG Oral Tablet (Lipitor) TAKE 1 TABLET BY MOUTH EVERY MORNING 90 Tablet 3 Omeprazole 20 MG Oral Capsule Delayed Release (PriLOSEC) Take 1 capsule by mouth daily in the morning, 1 hour before the first meal of the day 90 Capsule 1 No current facility-administered medications for this visit. OBJECTIVE/PHYSICAL EXAMINATION: BP 138/84 | Pulse 80 | Resp 16 | Wt 133.8 kg (295 lb) | BMI 43.56 kg/m | BSA 2.55 m BP Readings from Last 4 Encounters: 03/07/24 138/84 03/06/24 130/81 01/03/24 124/76 10/01/23 126/86 General: no acute distress and stated age Eyes: conjunctiva are pink and non-injected, sclera clear Neck: normal jugular venous pulse, no hepatojugular reflux Chest: normal shape and normal respiratory effort Lungs: clear to auscultation , no rales rhonchi or wheezing Cardiac Exam: - regular heart sounds, no murmurs, rubs, or gallops Abdomen: abdomen soft, non-tender, no abnormal masses and no hepatosplenomegaly Musculoskeletal: no gait disturbance, no weakness Extremities: no edema and no cyanosis Neuro: grossly normal exam Psych: appropriate affect and insight. Results LABS Erythrocyte sedimentation rate: 18 mm/hr (03/02/2024) Cholesterol: High (02/05/2024) RADIOLOGY CT angiogram of head and neck vessels: No evidence of stroke or stenosis (03/02/2024) DIAGNOSTIC REPORTS EKG: Normal sinus rhythm at 90 bpm (03/07/2024) Summary of transthoracic echocardiogram performed 03/06/2024 and interpreted independently Sinus rhythm was present on the echocardiogram. The qualitative LV ejection fraction is 55-59% (normal). Mild aortic valve regurgitation is present. There is a 1.6 cm x 1 cm mobile echodensity in the left atrium that appears to be adherent to the interatrial septum or anterior mitral valve leaflet. Differential diagnosis includes left atrial myxoma, vegetation or other cardiac mass. EKG performed 03/02/2024 at [facility] and interpreted independently: Normal sinus rhythm 84 beats per minute with incomplete right bundle branch block, QRS duration 116milliseconds, corrected QT interval 420 milliseconds, relatively unchanged compared to the previoustracing dating back to 2007 Latest Reference Range & Units 02/05/24 07:59 Triglycerides <=174 mg/dL 80 Cholesterol <200 mg/dL 155 Non-HDL Cholesterol <=159 mg/dL 120 HDL Cholesterol >39 mg/dL 35 (L) LDL Cholesterol <=129 mg/dL 104 (L): Data is abnormally low Assessment & Plan Cerebrovascular Accident (CVA) due to Embolism Experienced a CVA on March 02, characterized by pressure behind the left eye, visual disturbances, and a severe headache. CT angiogram showed no evidence of stroke by CT criteria. Differential diagnosis includes embolism from the heart, possibly due to a left atrial myxoma,healed vegetation, thrombus or other mass . Family history of heart disease and blood clots increases his risk. Discussedthe need for MRI of the brain, blood work including blood cultures and inflammatory markers, and transesophageal echocardiogram (BHUMIKA) for detailed heart imaging. Explained that MRI will provide a more detailed picture of whether a stroke occurred and BHUMIKA will help characterize the heart mass and its embolic potential. - Order MRI of the brain - Order blood work including blood cultures and infection markers - Schedule BHUMIKA - Continue aspirin, irbesartan, atorvastatin Left Atrial Mass (Possible Myxoma) Echocardiogram revealed a 1.6 cm by 1 cm mass in the left atrium, possibly a myxoma. This mass could be the source of emboli leading to the CVA. Discussed that the mass might be a myxoma, a noncancerous tumor, or a blood clot. Explained that if the mass is a myxoma, surgical removal might be necessary to prevent further embolic events. Informed that heart MRI will provide additional information about the tissue characteristics of the mass. - Order BHUMIKA - Consider heart MRI for tissue characterization - Discuss potential surgical removal if mass is confirmed to be a myxoma Hypertension Currently managed with irbesartan. Blood pressure today was 138/84 mmHg, slightly elevated but not concerning given the current circumstances. Discussed continuing current medication and monitoring blood pressure. - Continue irbesartan - Monitor blood pressure and adjust medication as needed Hyperlipidemia Managed with atorvastatin 40 mg. Cholesterol levels were slightly elevated despite medication. Discussed continuing current medication and considering increasing the dose after current issues are addressed. - Continue atorvastatin 40 mg - Consider increasing the dose or adding ezetimibe after current issues are addressed Obesity BMI of 43.56 kg/m, contributing to overall cardiovascular risk. Discussed lifestyle and dietary modifications to encourage weight loss and regular physical activity. - Provide lifestyle and dietary counseling - Encourage weight loss and regular physical activity Obstructive Sleep Apnea A known risk factor for cardiovascular disease. Discussed ensuring compliance with CPAP therapy andmonitoring for symptoms. - Ensure compliance with CPAP therapy - Monitor for symptoms of sleep apnea Diverticulitis Recent flare-up three weeks ago, managed with dietary modifications. Reported some bleeding. Discussed avoiding additional aspirin to prevent exacerbation of bleeding. - Monitor for symptoms of diverticulitis - Avoid additional aspirin to prevent exacerbation of bleeding Follow-up - Follow up with primary care physician for blood pressure management - Coordinate with contestant coordinator for test results and further management - Apply for short-term disability and consider long-term disability if necessary - Schedule follow-up appointment after diagnostic tests are completed. Mariano Simms DO Department of Cardiology I spent a total of Greater than 55 mins (exact time 60 mins) on the date of service in preparation,delivery, and documentation of the care provided to Juarez Madrid Sr. excluding any time spent inthe performance of separately billed services. This visit involved medical care services related to at least one serious condition or complex condition requiring ongoing care. This chart was completed in part utilizing [employer] Speech Voice Recognition Software. Grammatical errors, random word insertions, prounoun errors, and incomplete sentences are an occasional consequence of this system due to software limitations, ambient noise, and hardware issues. Any formal questions or concerns about the content, text, or information contained within the body of this dictation should be directly addressed to the provider for clarification. Text in this note was generated using an ambient documentation service. I discussed the use of a device to record and summarize our discussion today. All persons present during the encounter consented to its use. documented in this encounter Nursing Notes * Faith Wood LPN - 03/07/2024 10:17 AM EST Transesophageal Echo Cardiogram Please arrive at [facility] at 6:30am (Pt time) on 03/14/24. Mariano Simms DO will preform your transesophageal echocardiogram. Please enter via the Main Entrance and register/check in at the senior front end web developer. DO NOT eat or drink anything after 10pm the night before your procedure DO NOT take the following medications on the morning of your procedure: atorvastatin, ok to take later in the day DO TAKE the following medications with a sip of water at their usual times: omeprazole, ibastartan,aspirin If you take INSULIN: n/a DO NOT wear any jewelry the day of the procedure. Bring your medications with you in their original containers. It may be necessary for you to take them after your procedure. You will be admitted to the hospitals for bedrest and observation after your procedure is complete.Please bring a book or tablet to use during recovery. No televisions are available. If your physician plans to discharge you same day, please arrange to have someone drive you home. If you have any questions regarding the procedure before you come or questions in the days after the procedure, please do not hesitate to call the office at [phone] Proceed to lab for pre procedure testing * Faith Wood LPN - 03/07/2024 9:06 AM EST Examination Room: 10 Name: Juarez Madrid Sr. Date of : 1965 Reason for Visit: New patient Problems/Concerns: Concerned about BP, echo results. C/o headaches Interim Hosp(s): ER HTN Chest Pain/SOB: denies MyChart Discussed: ALREADY ACTIVE Patient was instructed to not get up on the exam table until directed and assisted by their provider; patient is to remain seated in the chair/ wheelchair/ exam table for fall prevention and safety reasons. Patient is aware staff will assist stepping down off exam table with personnel. documented in this encounter Plan of Treatment Upcoming Encounters Date Type Department Care Team (Late st Contact Info) Description 03/08/2024 1:00 PM EST Office Visit [facility], [place] [phone] JuneDar MD [address] [place] [id number] 04/05/2024 6:20 PM EST Office Visit [facility] [place] [address] [place] [phone] JuneDar MD [address] [place] [address] 09/04/2024 8:45 AM EDT Office Visit Ophthalmology, [facility] [address] [place] [address] Epi Zimmerman DO [address] [place] [address] Pending Results Name Type Priority Associated Diagnoses Date /Time MRI BRAIN W WO CONTRAST Medical Imaging STAT Cerebrovascular accident (CVA) due to embolism of anterior cerebral artery, unspecified blood vessel laterality (HCC) Cardiac mass 03/07/2024 10:25 AM EST Scheduled Orders Name Type Priority Associated Diagnoses Orde r Schedule EKG EKG Routine Primary hypertension Expected: 03/07/2024 (Approximate), Expires: 04/07/2025 CBC WITH WBC DIFFERENTIAL Lab Routine Cerebrovascular accident (CVA) due to embolism of anterior cerebral artery, unspecified blood vessel laterality (HCC) Cardiac mass Expected: 03/07/2024, Expires: 03/07/2025 COMPREHENSIVE METABOLIC PANEL Lab Routine Cerebrovascular accident (CVA) due to embolism of anterior cerebral artery, unspecified blood vessel laterality (HCC) Cardiac mass Expected: 03/07/2024, Expires: 03/07/2025 ERYTHROCYTE SEDIMENTATION RATE (ESR) Lab Routine Cerebrovascular accident (CVA) due to embolism of anterior cerebral artery, unspecified blood vessel laterality (HCC) Cardiac mass Expected: 03/07/2024, Expires: 03/07/2025 CRP (INFLAMMATORY MARKER) Lab Routine Cerebrovascular accident (CVA) due to embolism of anterior cerebral artery, unspecified blood vessel laterality (HCC) Cardiac mass Expected: 03/07/2024, Expires: 03/07/2025 CULTURE, BLOOD Lab Routine Cerebrovascular accident (CVA) due to embolism of anterior cerebral artery, unspecified blood vessel laterality (HCC) Cardiac mass Expected: 03/07/2024, Expires: 03/07/2025 MRI BRAIN W WO CONTRAST Medical Imaging STAT Cerebrovascular accident (CVA) due to embolism of anterior cerebral artery, unspecified blood vessel laterality (HCC) Cardiac mass Expected: 03/07/2024, Expires: 04/07/2025 TRANSESOPHAGEAL ECHO (COMPLETE) Echocardiology Routine Cerebrovascular accident (CVA) due to embolism of anterior cerebral artery, unspecified blood vessel laterality (HCC) Cardiac mass Expected: 03/08/2024, Expires: 04/07/2025 Scheduled Procedures Name Priority Associated Diagnoses Date/Ti me COLONOSCOPY FLEXIBLE PROXIMAL DIAGNOSTIC Recall History of colon polyps Health Maintenance Due Date Last Done Comments Cologuard 2011 Fecal Occult Blood Test 2011 Sigmoidoscopy 2011 Pneumococcal Vaccine: 50+ Years (1 of 1 - PCV) 2016 COVID-19 Vaccine ( season) 2023 01/19/2021, 07/13/2020, 06/15/2020 HIV Screening 09/29/2024 Postponed from 1981 (Patient Declined After Education) Hepatitis C Screening 09/29/2024 Postpo nikole from 1984 (Patient Declined After Education) Depression Screening 09/30/2024 10/01/2023 GFR 02/04/2025 02/05/2024, 02/15, 04/11/2022, Additional history exists HbA1c 02/04/2025 02/05/2024, 02/15, 04/11/2022 Albumin/Creatinine Ratio 04/11/2025 04/11/2022 Colonoscopy 12/05/2026 12/05/2021, 12/05/2021 Colorectal Cancer Screening 12/05/2026 DTap/Tdap Vaccines (2 - Td or Tdap) 11/09/2027 11/08/2017 Lipid Panel 02/04/2029 02/05/2024, 02/15, 04/11/2022 RETIRED - COLONOSCOPY-EVERY 5 YRS AGES 18-100 Discontinued 12/05/2021, 12/05/2021 Zoster Vaccines Completed 06/24/2023, 03/10/2023 Influenza Vaccine (FLU shot) Completed 01/03/2024 HPV (Gardasil) Vaccine Aged Out No lo nger eligible based on patient's age to complete this topic Hepatitis B Vaccine Discontinued MENINGOCOCCAL (MENACTRA/MENVEO) Aged Out No longer eligible based on patient's age to complete this topic documented as of this encounter Medical Devices Not on filedocumented as of this encounter Visit Diagnoses Diagnosis Cerebrovascular accident (CVA) due to embolism of anterior cerebral artery, unspecified blood vessel laterality (HCC)- Primary Cardiac mass Swelling, mass, or lump in chest Primary hypertension Unspecified essential hypertension Dyslipidemia Other and unspecified hyperlipidemia documented in this encounter Care Teams Candy Forming Machine Operator Relationship Specialty Start Date End Date June, Dar Smith MD PCP - General Family Medicine 02/26/23 documented as of this encounter"
--- OUTSIDE RECORDS SUMMARY | 2024-03-14 08:03 | External Medical Summary | Summary of Care ---
Author Name Unknown Organization [facility] Address [address] [place] [address] Phone [phone] Care Team Providers Care Catering Chef Name Role Phone Dar Barone MD Primary Care Provider [phone] Reason for Visit * Reason Comments Outpatient Testing Encounter Details Date Type Department Care Team (Latest Contact Info) Description 03/07/2024 11:10 AM EST Laboratory Laboratory, [facility] [address] [place] [phone] [facility] [address] [place] [address] Cerebrovascular accident (CVA) due to embolism of anterior cerebral artery, unspecified blood vessel laterality (HCC); Cardiac mass Allergies Active Allergy Reactions Criticality Noted Date [...] No 10/01/2023 Does the household have a [facility] source [facility] income? (Household - for ages [...] on file documented as of this encounter Plan of Treatment Upcoming Encounters Date Type Department Care Team (Late st Contact Info) Description 03/08/2024 1:00 PM EST Office Visit [facility] Miguel Moseley [address] [phone] Dar Barone MD [address] [address] 04/05/2024 6:20 PM EST Office Visit Miguel Pal [address] [phone] Dar Barone MD [address] [address] 09/04/2024 8:45 AM EDT Office Visit Ophthalmology, [facility] [address] [place] [address] Epi Zimmerman DO [address] [place] [address] Pending Results Name Type Priority Associated Diagnoses Date /Time COMPREHENSIVE METABOLIC PANEL Lab Routine Cerebrovascular accident (CVA) due to embolism of anterior cerebral artery, unspecified blood vessel laterality (HCC) Cardiac mass 03/07/2024 11:33 AM EST ERYTHROCYTE SEDIMENTATION RATE (ESR) Lab Routine Cerebrovascular accident (CVA) due to embolism of anterior cerebral artery, unspecified blood vessel laterality (HCC) Cardiac mass 03/07/2024 11:33 AM EST CRP (INFLAMMATORY MARKER) Lab Routine Cerebrovascular accident (CVA) due to embolism of anterior cerebral artery, unspecified blood vessel laterality (HCC) Cardiac mass 03/07/2024 11:33 AM EST CULTURE, BLOOD Lab Routine Cerebrovascular accident (CVA) due to embolism of anterior cerebral artery, unspecified blood vessel laterality (HCC) Cardiac mass 03/07/2024 11:33 AM EST Scheduled Procedures Name Priority Associated Diagnoses Date/Ti [...] Not on filedocumented as of this encounter Procedures Procedure Name Priority Date/Time Associated Diagnosis Comments DIFFERENTIAL, AUTOMATED Routine 03/07/2024 11:33 AM EST Cerebrovascular accident (CVA) due to embolism of anterior cerebral artery, unspecified blood vessel laterality (HCC) Cardiac mass CBC Routine 03/07/2024 11:33 AM EST Cerebrovascular accident (CVA) due to embolism of anterior cerebral artery, unspecified blood vessel laterality (HCC) Cardiac mass CBC Routine 03/07/2024 11:33 AM EST Cerebrovascular accident (CVA) due to embolism of anterior cerebral artery, unspecified blood vessel laterality (HCC) Cardiac mass documented in this encounter Results * (ABNORMAL) DIFFERENTIAL, AUTOMATED (03/07/2024 11:33 AM EST) WBC 5.37 4.00 - 10.80 K/uL 03/07/2024 12:08 PM EST [facility] [place] [facility] Neutrophils % 55.0 40.0 - 75.0 % 03/07/2024 12:08 PM EST [facility] [place] [facility] Lymphocytes % 28.7 18.0 - 42.0 % 03/07/2024 12:08 PM EST [facility] [place] [facility] Monocytes % 15.5(H) 1.0 - 11.0 % 03/07/2024 12:08 PM EST [facility] [place] [facility] Eosinophils % 0.4 0.0 - 6.0 % 03/07/2024 12:08 PM EST [facility] [place] Basophils % 0.4 0.0 - 2.0 % 03/07/2024 12:08 PM EST [facility] [place] Absolute Neutrophils 2.96 1.80 - 7.70 K/uL 03/07/2024 12:08 PM EST [facility] [place] [facility] Absolute Lymphocytes 1.54 1.00 - 4.80 K/ul 03/07/2024 12:08 PM EST [facility] [place] [facility] Absolute Monocytes 0.83 0.00 - 1.10 K/uL 03/07/2024 12:08 PM EST [facility] [place] Absolute Eosinophils 0.02 0.00 - 0.70 K/uL 03/07/2024 12:08 PM EST [facility] [place] [facility] Absolute Basophils 0.02 0.00 - 0.20 K/uL 03/07/2024 12:08 PM EST [facility] [place] [facility] Blood Venous blood specimen / Unknown Venipuncture / Unknown 03/07/2024 11:33 AM EST 03/07/2024 11:33 AM EST us Mariano Simms DO LAB BLOOD ORDERABLES Final R esult [facility] [place] [address] * (ABNORMAL) CBC (03/07/2024 11:33 AM EST) WBC 5.37 4.00 - 10.80 K/uL 03/07/2024 12:08 PM EST [facility] [place] [facility] RBC 4.54 4.50 - 5.25 M/uL 03/07/2024 12:08 PM EST [facility] HGB 13.8(L) 14.0 - 16.8 g/dL 03/07/2024 12:08 PM EST [facility] [place] [facility] HCT 41.7 40.0 - 48.4 % 03/07/2024 12:08 PM EST [facility] [place] [facility] MCV 91.9 82.0 - 99.5 fL 03/07/2024 12:08 PM EST [facility] [place] [facility] MCH 30.4 27.0 - 34.0 pg 03/07/2024 12:08 PM EST [facility] [place] [facility] MCHC 33.1 32.0 - 36.0 g/dL 03/07/2024 12:08 PM EST [facility] [place] RDW 13.7 11.5 - 15.5 % 03/07/2024 12:08 PM EST [facility] [place] [facility] PLT 260 140 - 400 K/uL 03/07/2024 12:08 PM EST [facility] [place] MPV 10.0 6.6 - 11.1 fL 03/07/2024 12:08 PM EST [facility] [place] [facility] Blood Venous blood specimen / Unknown Venipuncture / Unknown 03/07/2024 11:33 AM EST 03/07/2024 11:33 AM EST Mariano Simms DO LAB BLOOD ORDERABLES Final R esult [facility] [place] [facility] [address] [place] [address] documented in this encounter Visit Diagnoses Diagnosis Cerebrovascular accident (CVA) due to embolism of anterior cerebral artery, unspecified blood vessel laterality (HCC) Cardiac mass Swelling, mass, or lump in chest documented in this encounter Care Teams Catering Chef Relationship Specialty Start Date End Date June, Dar Smith MD PCP - General Family Medicine 02/26/23 documented as of this encounter
--- OUTSIDE RECORDS SUMMARY | 2024-03-14 08:03 | External Medical Summary | Summary of Care ---
Author Name Unknown Organization [facility] Address [address] [place] [address] Phone [phone] Care Team Providers Care Link Wire Fabric Machine Operator Name Role Phone Dar Barone MD Primary Care Provider [phone] Encounter Details Date Type Department Care Team (Late st Contact Info) Description 03/09/2024 Orders Only PATIENT [facility] DO NOT DELETE THIS DEPT USED BY [place] [id number] Allergies Active Allergy Reactions Criticality Noted Date Comments Morphine High 07/17/2021 Other Reaction(s): chest tightness Penicillins High 07/17/2021 Other Reaction(s): ANGIOEDEMA documented as of this encounter (statuses as of 03/09/2024) Medications busPIRone HCl 5 MG Oral Tablet [...] as of this encounter (statuses as of 03/09/2024) Active Problems Problem Noted Date Diagnosed Date History of cerebrovascular accident (CVA) due to embolism 03/08/2024 Left atrial mass 03/08/2024 Primary osteoarthritis of both knees 01/03/2024 Prediabetes 01/03/2024 Class 3 severe obesity due t o excess calories with serious comorbidity and body mass index (BMI) of 45.0 to 49.9 in adult 02/26/2023 GERD (gastroesophageal reflux disease) 2 Primary hypertension 07/17/2021 documented as of this encounter (statuses as of 03/09/2024) Immunizations Name Administration Dates Next Due Seasonal [...] No 10/01/2023 Does the household have a [facility] source of income? (Household - for ages [...] Care Team (Late st Contact Info) Description 06/06/2024 1:00 PM EDT Office Visit Family [facility], Miguel Ascencio [address] [phone] Dar Barone MD [address] [address] 09/04/2024 8:45 AM EDT Office Visit Ophthalmology, [facility] [address] [address] Epi Zimmerman DO [address] [address] [address] Scheduled Procedures Name Priority Associated Diagnoses Date/Ti me COLONOSCOPY FLEXIBLE PROXIMAL DIAGNOSTIC Recall History of colon polyps Health Maintenance Due Date Last Done Comments Cologuard 2011 Fecal Occult Blood Test 2011 Sigmoidoscopy 2011 Pneumococcal Vaccine: 50+ Years (1 of 1 - PCV) 2016 COVID-19 Vaccine (4 - season) 2023 01/19/2021, 07/13/2020, 06/15/2020 HIV Screening 09/29/2024 Postponed from 1981 (Patient Declined After Education) Hepatitis C Screening 09/29/2024 Postpo nikole from 1984 (Patient Declined After Education) Depression Screening 09/30/2024 10/01/2023 HbA1c 02/04/2025 02/05/2024, 02/15, 04/11/2022 GFR 03/07/2025 03/07/2024, 01/16, 02/26/2023, Additional history exists Albumin/Creatinine Ratio 04/11/2025 04/11/2022 Colonoscopy 12/05/2026 12/05/2021, [...] Not on filedocumented as of this encounter Care Teams Link Wire Fabric Machine Operator Relationship Specialty Start Date End Date June, Dar Smith MD PCP - General Family Medicine 02/26/23 documented as of this encounter
--- OUTSIDE RECORDS SUMMARY | 2024-03-14 08:03 | External Medical Summary | Summary of Care ---
Author Name Unknown Organization [facility] Address [address] [place] [address] Phone [phone] Care Team Providers Care Frame Aligner Name Role Phone Dar Barone MD Primary Care Provider [phone] Reason for Visit * Reason Comments Emergency Department Follow-Up Patient i s here for an ER follow up from [facility] on 03/02 for blurred vision of L eye and Hypertension. Patient states he is feeling anxious today. Encounter Details Date Type Department Care Team (Late st Contact Info) Description 03/08/2024 1:00 PM EST [facility] [address] [phone] Dar Barone MD [address] [facility] [place] [address] Left atrial mass*; History of cerebrovascular accident (CVA) due to embolism; Primary hypertension; Class 3 severe obesity due to excess calories with serious comorbidity and body mass index (BMI) of 45.0 to 49.9 in adult (HCC); Prediabetes; Primary osteoarthritis of both knees Allergies Active Allergy Reactions Criticality Noted Date Comments Morphine High 07/17/2021 Other Reaction(s): chest tightness Penicillins High 07/17/2021 Other Reaction(s): ANGIOEDEMA documented as of this encounter (statuses as of 03/08/2024) Medications busPIRone HCl 5 MG Oral Tablet [...] as of this encounter (statuses as of 03/08/2024) Active Problems Problem Noted Date Diagnosed Date [...] as of this encounter (statuses as of 03/08/2024) Immunizations Name Administration Dates Next Due Seasonal [...] Sign Reading Time Taken Comments Blood Pressure 124/84 03/08/2024 12:52 PM EST Pulse 88 03/08/2024 12:52 PM EST Temperature 36.8 C (98.2 F) 03/08/2024 1 2:52 PM EST Respiratory Rate 18 03/08/2024 12:5 2 PM EST Oxygen Saturation 92% 03/08/2024 12: 52 PM EST Inhaled Oxygen Concentration - - Weight 134.5 kg (296 lb 9.6 oz) 025 12:52 PM EST Height - - Body Mass Index 43.8 10/01/2023 2:33 PM EDT documented in this encounter Progress Notes * Dar Barone MD - 03/08/2024 1:45 PM EST Images from the original note were not included. Subjective Oswald Madrid Sr. is a 58 year old male that presents for Emergency Department Follow-Up (Patient ishere for an ER follow up from [facility] on 03/02 for blurred vision of L eye and Hypertension. /Patient states he is feeling anxious today. ) History of Present Illness A 58-year-old patient with a history of prediabetes, hypertension, obesity, GERD, and osteoarthritis presents for a follow-up after a recent emergency room visit. The patient experienced an acute onset of left partial field of vision blurring and eye pain while at work. Initially, the patient thought he had debris in his eye, but the blurred vision persisted even after removing his contact lens. The patient also reported a history of floaters and kaleidoscope vision that occurred right before the eye pain and blurred vision. The patient declined admission and further testing in the emergency room. Since then, the patient has been seen by ophthalmology and cardiology. 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 The patient is scheduled for an MRI of the brain and a transesophageal echocardiogram (BHUMIKA) for further detailed heart imaging. Objective Vitals: 03/08/24 1252 Temp: 98.2 F (36.8 C) Pulse: 88 Resp: 18 SpO2: 92% BP: 124/84 Physical Exam VITALS: P- 100, BP- 124/84 CHEST: Breath sounds normal on auscultation Physical Exam Vitals reviewed. Constitutional: General: He is not in acute distress. Cardiovascular: Rate and Rhythm: Normal rate and regular rhythm. Heart sounds: No murmur heard. Pulmonary: Effort: Pulmonary effort is normal. No respiratory distress. Breath sounds: Normal breath sounds. No wheezing. Neurological: General: No focal deficit present. Mental Status: He is alert. I have reviewed the following results: Results LABS ESR: Mildly elevated (03/08/2024) CRP: Mildly elevated (03/08/2024) Hemoglobin: 13.8 g/dL (03/08/2024) CMP: Within normal limits (03/08/2024) RADIOLOGY Bedside ocular ultrasound: Ruled out retinal detachment (03/02/2024) Chest x-ray: Negative (03/02/2024) CTA of the head and neck: Negative for intracranial hemorrhage, ischemia, or occlusion of large vessels (03/02/2024) MRI of the brain: Scattered microhemorrhages or artifacts in the upper right cerebral region (03/07/2024) DIAGNOSTIC EKG: No acute ischemia (03/02/2024) Cardiac echo: 1.6 cm x 1 cm mobile echo density in the left atrium, 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 Mildly elevated inflammatory markers. Discussed the risk of further embolic events and potential need for surgical removal. -Undergo MRI of the brain and transesophageal echocardiogram as recommended by cardiology. -Continue Irbesartan for hypertension. -Check blood cultures and monitor for results. Prediabetes A1C of 6.1, indicating prediabetes. -Continue current management and monitor A1C levels. Hypertension Blood pressure controlled on current medication. -Continue Irbesartan. Hyperlipidemia LDL cholesterol slightly elevated. -Continue Atorvastatin. GERD No current complaints. -Continue Omeprazole. Osteoarthritis No current complaints. -No changes to current management. Obesity No current complaints. -No changes to current management. Patient will send any [facility] paperwork to the office. He currently has [place] paperwork completed by Ophthalmology giving him off through May 01. Left atrial mass (Primary) History of cerebrovascular accident (CVA) due to embolism Primary hypertension Class 3 severe obesity due to excess calories with serious comorbidity and body mass index (BMI) of45.0 to 49.9 in adult (HCC) Prediabetes Primary osteoarthritis of both knees Wrap-Up Follow Up: Return in about 3 months (around 06/06/2024) for 3 month return. | For: 3 month return | Check-out note: Cancel appointment for 04/05/2024. Schedule in 3 months. Dar Barone MD Time: I spent a total of 40-54 minutes (exact time 52 mins) on the date of service in preparation, delivery, and documentation of the care provided to Juarez Madrid Sr. excluding any time spent in the performance of separately billed services. Text in this note was generated using an ambient documentation service. I discussed the use of a device to record and summarize our discussion today. All persons present during the encounter consented to its use. documented in this encounter Nursing Notes * Zina Ludwig LPN - 03/08/2024 12:53 PM EST The patient has been properly identified by confirmation of name and date of . Chief Complaint Patient presents with Emergency Department Follow-Up Patient is here for an ER follow up from [facility] on 03/02 for blurred vision of L eye and Hypertension. Patient states he is feeling anxious today. documented in this encounter Plan of Treatment Upcoming Encounters Date Type Department Care Team (Late st Contact Info) Description 06/06/2024 1:00 PM EDT Office Visit [facility] [address] [facility] [place] [phone] Dar Barone MD [address] [facility] [place] [address] 09/04/2024 8:45 AM EDT Office Visit Ophthalmology, [facility] [address] [address] Epi Zimmerman DO [address] [address] [address] Scheduled Procedures Name Priority Associated Diagnoses Date/Ti me COLONOSCOPY FLEXIBLE PROXIMAL DIAGNOSTIC Recall History of colon polyps Health Maintenance Due Date Last Done Comments Cologuard 2011 Fecal Occult Blood Test 2011 Sigmoidoscopy 2011 Pneumococcal Vaccine: 50+ Years (1 of 1 - PCV) 2016 COVID-19 Vaccine ( - season) 2023 01/19/2021, 07/13/2020, 06/15/2020 HIV [...] as of this encounter Visit Diagnoses Diagnosis Left atrial mass- Primary History of cerebrovascular accident (CVA) due to embolism Primary hypertension Unspecified essential hypertension Class 3 severe obesity due to excess calories with serious comorbidity and body mass index (BMI) of 45.0 to 49.9 in adult (HCC) Prediabetes Other abnormal glucose Primary osteoarthritis of both knees Primary localized osteoarthrosis, lower leg documented in this encounter Care Teams Frame Aligner Relationship Specialty Start Date End Date June, Dar Smith MD PCP - General Family Medicine 02/26/23 documented as of this encounter"
--- OUTSIDE RECORDS SUMMARY | 2024-03-14 08:04 | External Medical Summary ---
Author Name Unknown Address Unknown Organization [id number] [address] [place] [id number] Laboratory Report Ordering Provider Test Date Status RONNI HENRY 03/07/2024 11:33:24 Final Observation Date Value Abnormality Reference (Units ) Status BUN 03/07/2024 11:33:24 19 6-20 (mg/dL) Final Creatinine 03/07/2024 11:33:24 1.1 0.6-1.2 (mg/dL) Final Glomerular filtration rate/1.73 sq M.predicted [Volume Rate/Area] in Serum, Plasma or Blood by Creatinine-based formula (CKD-EPI) 03/07/2024 11:33:24 79 >=60 (mL/min) Final eGFR is calculated based on the CKD-EPI 2020 equation. Sodium 03/07/2024 11:33:24 138 135-146 (m mol/L) Final Potassium 03/07/2024 11:33:24 4.4 3.5-5.1 (m mol/L) Final Cl 03/07/2024 11:33:24 102 98-107 (mm ol/L) Final CO2 03/07/2024 11:33:24 22 22-32 (mmo l/L) Final Anion gap 03/07/2024 11:33:24 14 7-15 (mmol /L) Final Glucose 03/07/2024 11:33:24 87 70-120 (mg /dL) Final Albumin 03/07/2024 11:33:24 4.5 3.8-5.0 (g /dL) Final AST (Aspartate aminotransferase) 03/07/2024 11:33:24 18 10-50 (U/L) Final Alk Phos 03/07/2024 11:33:24 86 35-130 (U/ L) Final Bilirubin, Total 03/07/2024 11:33:24 0.4 <=1 .2 (mg/dL) Final Calcium 03/07/2024 11:33:24 9.1 8.4-10.2 ( mg/dL) Final Protein 03/07/2024 11:33:24 7.3 6.0-8.3 (g /dL) Final ALT (Alanine aminotransferase) 03/07/2024 11:33:24 29 10-50 (U/L) Final Performing Location [facility] [address] [facility] [address]
--- OUTSIDE RECORDS SUMMARY | 2024-03-14 08:04 | External Medical Summary | Summary of Care ---
Author Name Unknown Organization [facility] Address [address] [place] [address] Phone [phone] Care Team Providers Care Outboard Motors Experimental Mechanic Name Role Phone Jeremy Garibay MD Primary Care Provider [phone] Reason for Visit * Reason Comments eRx-Medication Refill Encounter Details Date Type Department Care Team (Late st Contact Info) Description 03/06/2024 Refill [facility] [address] [place] [phone] Jeremy Garibay MD [address] [place], [place] [id number] Encounter for long-term (current) use of medications* Allergies Active Allergy Reactions Criticality Noted Date Comments Morphine High 07/17/2021 Other Reaction(s): chest tightness Penicillins High 07/17/2021 Other Reaction(s): ANGIOEDEMA documented as of this encounter (statuses as of 03/06/2024) Medications busPIRone HCl 5 MG Oral Tablet (Buspar) 2 Active Vitamin B12 1000 MCG Oral Tablet [...] MOUTH IN THE MORNING 90 Tablet 3 5 Active Omeprazole 20 MG Oral Capsule Delayed Release (PriLOSEC) Take 1 capsule by mouth daily in the morning, 1 hour before the first meal of the day 90 Capsule 1 5 Active Irbesartan 150 MG Oral Tablet (Avapro) TAKE ONE TABLET BY MOUTH IN THE MORNING 90 Tablet 3 4 03/06/19 25 Discontinued Atorvastatin Calcium 40 MG Oral Tablet (Lipitor) TAKE 1 TABLET BY MOUTH EVERY MORNING 90 Tablet 2 4 03/06/19 25 Discontinued Omeprazole 20 MG Oral Capsule Delayed Release (PriLOSEC) Take 1 capsule by mouth daily in the morning, 1 hour before the first meal of the day 90 Capsule 1 4 03/06/19 25 Discontinued Hospital, Clinic, or Other Facility Administered Medication Ordered Dose Route Frequency Start Date End Date Status Fluorescein Sodium (Fluorescite) inj 500 mgIndications:Amaurosis fugax, left eye 500 mg IV ONCE 03/06/2024 03/07/2024 Active documented as of this encounter (statuses as of 03/06/2024) Active Problems Problem Noted Date Diagnosed Date Primary osteoarthritis of both knees 01/03/2024 Prediabetes 01/03/2024 Class 3 severe obesity due t o excess calories with serious comorbidity and body mass index (BMI) of 45.0 to 49.9 in adult 02/26/2023 GERD (gastroesophageal reflux disease) 2 Primary hypertension 07/17/2021 documented as of this encounter (statuses as of 03/06/2024) Immunizations Name Administration Dates Next Due Seasonal [...] on file documented as of this encounter Miscellaneous Notes * Telephone Encounter - Aurelio Estes, [facility] - 03/06/2024 1:48 PM EST Signed Prescriptions: Disp Refills Irbesartan 150 MG Oral Tablet (Avapro) 90 Tab*3 Sig: TAKE ONE TABLET BY MOUTH IN THE MORNINGAuthorizing Provider: MAY, JEREYM DAVIDOrdering User: AURELIO ESTES Omeprazole 20 MG Oral Capsule Delayed Rele*90 Cap*1 Sig: Take 1 capsule by mouth daily in the morning, 1 hour before the first meal of the dayAuthorizing Provider: JEREMY GARIBAY User: AURELIO ESTES * Telephone Encounter - Aurelio Estes RPh - 03/06/2024 1:47 PM EST Per refill protocol patient needs magnesium and vitamin B-12 labs on file within the past 2 years while using PPIs. Lab work ordered. Patient may obtain with next routine labs. Thank you, Aurelio Estes, PharmD, ARISTEO Clinical Pharmacist [facility] 03/06/24 1:48 PM [phone] documented in this encounter Plan of Treatment Upcoming Encounters Date Type Department Care Team (Late st Contact Info) Description 03/07/2024 9:30 AM EST Office Visit Cardiology, [facility] [address] [address] Mariano Simms DO [address] [address] 04/05/2024 6:20 PM EST Office Visit [facility] Miguel Moseley [address] [phone] Jeremy Garibay MD [address] [address] 09/04/2024 8:45 AM EDT Office Visit Ophthalmology, [facility] [address] [place] [address] Epi Zimmerman DO [address] [place] [address] Scheduled Orders Name Type Priority Associated Diagnoses Orde r Schedule VITAMIN B12 Lab Routine Encounter for long-term (current) use of medications Expected: 03/20/2024 (Approximate), Expires: 03/06/2025 MAGNESIUM Lab Routine Encounter for long-term (current) use of medications Expected: 03/20/2024 (Approximate), Expires: 03/06/2025 Scheduled Procedures Name Priority Associated Diagnoses Date/Ti [...] as of this encounter Visit Diagnoses Diagnosis Encounter for long-term (current) use of medications- Primary Encounter for long-term (current) use of other medications documented in this encounter Care Teams Outboard Motors Experimental Mechanic Relationship Specialty Start Date End Date June, Jeremy Smith MD PCP - General Family Medicine 02/26/23 documented as of this encounter
--- OUTSIDE RECORDS SUMMARY | 2024-03-14 08:04 | External Medical Summary ---
Author Name Unknown Address Unknown Organization K[facility] [address] [place] [id number] Laboratory Report Ordering Provider Test Date Status RONNI HENRY 03/07/2024 11:33:24 Final Observation Date Value Abnormality Reference (Units ) Status Bacteria identified in Specimen by Culture 03/07/2024 11:33:24 No growth Final Test: Culture, Blood
Sp ecimen Source: Blood, Venous
Specimen Type: Blood
Specimen Date: 03/07/2024 1133
Result Date: 03/12/2024 1701
Result Status: Final result
Resulting Lab: [facility]
[address]
[place] [address]

CULTURE

No growth

null Performing Location [facility] - [address] [place] [address]
--- OUTSIDE RECORDS SUMMARY | 2024-03-14 08:04 | External Medical Summary ---
Author Name Unknown Address Unknown Organization K0G:[facility] [address] [place] [address] Laboratory Report Ordering Provider Test Date Status RONNI HENRY 03/07/2024 11:33:24 Final Observation Date Value Abnormality Reference (Units ) Status SYNC LEUKOCYTES IN BLOOD BY AUTOMATED COUNT 03/07/2024 11:33:24 5.37 4.00-10.80 (K/uL) Final Segs 03/07/2024 11:33:24 55.0 40.0-75.0 (%) Final Lymphs % 03/07/2024 11:33:24 28.7 18.0-42.0 (%) Final Monos 03/07/2024 11:33:24 15.5 Above high normal 1.0-11.0 (%) Final Eosinophils 03/07/2024 11:33:24 0.4 0.0-6.0 (%) Final Basos 03/07/2024 11:33:24 0.4 0.0-2.0 (%) Final Absolute Segs 03/07/2024 11:33:24 2.96 1.80-7.70 (K/uL) Final Lymphs, absolute 03/07/2024 11:33:24 1.54 1.00-4.80 (K/ul) Final Monos, Abs 03/07/2024 11:33:24 0.83 0.00-1.10 (K/uL) Final Eos, Abs 03/07/2024 11:33:24 0.02 0.00-0.70 (K/uL) Final Basos, Abs 03/07/2024 11:33:24 0.02 0.00-0.20 (K/uL) Final Performing Location [facility] [address] [place] [address]
--- OUTSIDE RECORDS SUMMARY | 2024-03-14 08:04 | External Medical Summary | Summary of Care ---
Author Name Unknown Organization [facility] Address [address] [place] [address] Phone [phone] Care Team Providers Care Education Instructor Name Role Phone Jeremy Garibay MD Primary Care Provider [phone] Reason for Visit * Reason Comments eRx-Medication Refill Encounter Details Date Type Department Care Team (Late st Contact Info) Description 03/06/2024 Refill [facility] [address] [facility] [place] [phone] Jeremy Garibay MD [address] [place] [address] Allergies Active Allergy Reactions Criticality Noted Date [...] mouth every 6 hours as needed. Active Atorvastatin Calcium 40 MG Oral Tablet (Lipitor) TAKE 1 TABLET BY MOUTH EVERY MORNING 90 Tablet 3 5 Active Atorvastatin Calcium 40 MG Oral Tablet (Lipitor) TAKE 1 TABLET BY MOUTH EVERY MORNING 90 Tablet 2 4 03/06/19 25 Discontinued documented as of this encounter (statuses as [...] 10/01/2023 Does the household have a re lar source of income? (Household - for ages [...] Miscellaneous Notes * Telephone Encounter - Aurelio Estes [facility] - 03/06/2024 1:56 PM EST Signed Prescriptions: Disp Refills Atorvastatin Calcium 40 MG Oral Tablet (Li*90 Tab*3 Sig: TAKE 1 TABLET BY MOUTH EVERY MORNINGAuthorizing Provider: JEREMY GARIBAY User: AURELIO ESTES SE documented in this encounter Plan of Treatment Upcoming Encounters Date Type Department Care Team (Late st Contact Info) Description 03/07/2024 9:30 AM EST Office Visit Cardiology, [facility] [address] [address] Mariano Simms, [address] [place] [address] [address] 04/05/2024 6:20 PM EST [facility] [address] [phone] Jeremy Garibay MD [address] [address] [address] 09/04/2024 8:45 AM EDT Office Visit Ophthalmology, [facility] [address] [place] [address] Epi Zimmerman DO [address] [place] [address] Scheduled Procedures Name Priority Associated Diagnoses Date/Ti [...] filedocumented as of this encounter Care Teams Education Instructor Relationship Specialty Start Date End Date June, Jeremy Smith MD PCP - General Family Medicine 02/26/23 documented as of this encounter
--- OUTSIDE RECORDS SUMMARY | 2024-03-14 08:04 | External Medical Summary | Summary of Care ---
Author Name Unknown Organization [facility] Address [address] [place] [address] Phone [phone] Care Team Providers Care Nuclear Powerplant Supervisor Name Role Phone Dar Barone MD Primary Care Provider [phone] Reason for Visit * Reason Onset Date Comments Abnormal Test Results 03/06/2024 Encounter Details Date Type Department Care Team (Late st Contact Info) Description 03/06/2024 Telephone Cardiology, [facility] [address] [place] [address] Mariano Simms, [address] [place] [address] Abnormal Test Results Allergies Active Allergy Reactions Criticality Noted Date [...] money to buy more. Never true 10/01/19 Within the past 12 months, t he [...] encounter Miscellaneous Notes * Telephone Encounter - Otis Davey OSA - 03/06/2024 2:06 PM EST Patient has been scheduled on: 03/07/2024 Status: Tomy Time: 9:30 AM Length: 30 Visit Type: NEW CARDIOLOGY [94192] Reg Status: Verified Copay: $0.00 Provider: Mariano Simms DO * Telephone Encounter - Mariano Simms DO - 03/06/2024 1:24 PM EST Patient underwent an echocardiogram today as per the request of Dr. Zimmerman for the evaluation of amaurosis fugax. Patient has been found to have a 1 centimeter x 1.6 centimeter mobile echodensity in the left atrium that appears to be adherent to the interatrial septum. Working diagnosis possibilities include the presence of a left atrial myxoma. The patient states that he has an ongoing visual deficits. CT angiogram of the head and neck performed on 03/02/2024 in the emergency department at [facility] negative. Patient was sent sinus rhythm with the time of the echocardiogram today. He has not had any previous cardiac imaging. He is taking aspirin 81 milligrams daily. I discussed the results in person with Dr. Zimmerman, and then I called patient to review the results with him. Ongoing treatment with aspirin is recommended. Recommend Cardiology consultation to discuss proceeding with further testing including blood cultures, transesophageal echocardiogram, cardiac MRI. Patient agreeable. Dr Zimmerman is placing a cardiology referral and will make arrangements for the patient to be seen tomorrow in cardiology clinic. Patient requests a note that he had may provide to his employer stating that he is unable to returnto work pending further medical testing. 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 He therefore so unable to return to work pending further testing. I will draft a letter on his behalf. Mariano Simms DO documented in this encounter Plan of Treatment Upcoming Encounters Date Type Department Care Team (Late st Contact Info) Description 03/07/2024 9:30 AM EST Office Visit Cardiology, [facility] [address] [place] [address] Mariano Simms DO [address] [place] [address] [address] 04/05/2024 6:20 PM EST [facility] [address] [phone] JuneDar MD [address] [address] [address] 09/04/2024 8:45 AM EDT Office Visit Ophthalmology, [facility] [address] [place] [address] Epi Zimmerman DO [address] [place] [address] Scheduled Procedures Name Priority Associated Diagnoses Date/Ti [...] filedocumented as of this encounter Care Teams Nuclear Powerplant Supervisor Relationship Specialty Start Date End Date June, Dar Smith MD PCP - General Family Medicine 02/26/23 documented as of this encounter
--- OUTSIDE RECORDS SUMMARY | 2024-03-14 08:04 | External Medical Summary ---
Author Name Unknown Address Unknown Organization K0G:[facility] [address] [place] [address] Laboratory Report Ordering Provider Test Date Status RONNI HENRY 03/07/2024 11:33:24 Final Observation Date Value Abnormality Reference (Units ) Status WBC, Total 03/07/2024 11:33:24 5.37 4.00-10.8 0 (K/uL) Final RBC 03/07/2024 11:33:24 4.54 4.50-5.25 (M/uL) Final Hemoglobin 03/07/2024 11:33:24 13.8 Below low normal 14 .0-16.8 (g/dL) Final HCT 03/07/2024 11:33:24 41.7 40.0-48.4 (%) Final MCV 03/07/2024 11:33:24 91.9 82.0-99.5 (fL) Final MCH 03/07/2024 11:33:24 30.4 27.0-34.0 (pg) Final MCHC 03/07/2024 11:33:24 33.1 32.0-36.0 (g/dL) Final RDW 03/07/2024 11:33:24 13.7 11.5-15.5 (%) Final Platelets 03/07/2024 11:33:24 260 140-400 (K /uL) Final MPV 03/07/2024 11:33:24 10.0 6.6-11.1 ( fL) Final Performing Location [facility] [address] [place] [address]
--- OUTSIDE RECORDS SUMMARY | 2024-03-14 08:04 | External Medical Summary | Summary of Care ---
Author Name Unknown Organization [facility] Address [address] [place] [address] Phone [phone] Care Team Providers Care Industry Operations Investigator Name Role Phone Dar Barone MD Primary Care Provider Reason for Visit * Reason Onset Date Comments Abnormal Test Results 03/06/2024 Encounter Details Date Type Department Care Team (Late st Contact Info) Description 03/06/2024 Telephone Cardiology, [facility] [address] [place] [address] Mariano Simms, [address] [place] [address] Abnormal Test Results Allergies Active Allergy Reactions [...] encounter Miscellaneous Notes * Telephone Encounter - Mariano Simms DO [...] on 03/02/2024 in the emergency department at [facility] negative. Patient was sent sinus rhythm [...] testing. 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 He therefore so unable to return to work pending further testing. I will draft a letter on his behalf. Mariano Simms DO documented in this encounter Plan of Treatment Upcoming Encounters Date Type Department Care Team (Late st Contact Info) Description 03/07/2024 9:30 AM EST Office Visit Cardiology, [facility] [address] [place] [address] Mariano Simms DO [address] [place] [address] 04/05/2024 6:20 PM EST Office Visit [facility] [address] [place] [phone] JuneDar MD [address] [place] [address] 09/04/2024 8:45 AM EDT Office Visit Ophthalmology, [facility] [address] [place] [address] Epi Zimmerman DO [address] [place] [address] Scheduled Procedures Name Priority Associated Diagnoses Date/Ti [...] filedocumented as of this encounter Care Teams Industry Operations Investigator Relationship Specialty Start Date End Date June, Dar Smith MD PCP - General Family Medicine 02/26/23 documented as of this encounter
--- OUTSIDE RECORDS SUMMARY | 2024-03-14 08:04 | External Medical Summary | Summary of Care ---
Author Name Unknown Organization [facility] Address [address] [place] [address] Phone [phone] Care Team Providers Care Lining Cutter Name Role Phone Dar Barone MD Primary Care Provider [phone] Reason for Referral * Evaluate & Treat - Unlimited Visits (Within 24 hrs (call dept; emergent)) - Pending Review Specialty Diagnoses / Procedures Referred By Contact Referred To Contact Cardiovascular Medicine / Cardiology Diagnoses Amaurosis fugax, left eye Epi Zimmerman DO [address] [place] [address] Phone: tel: fax: Referral ID Status Reason Start Date Expiration Date Visits Requested Visits Authorized [id number] Pending Review Specialty Services Required 03/06/2024 [id number] Question Answer Referral Priority Within 24 hrs (call dept; emergent) Where should this appointment be scheduled? [facility] To which of the following clinics are you referring your patient? General Cardiology Clinic Comments Amaurosis fugax * Precert (Diagnostic Medical) (Within 24 hrs (call dept; emergent)) - Pending Review Specialty Diagnoses / Procedures Referred By Rolando calero Referred To Contact Cardiac Studies Diagnoses Amaurosis fugax, left eye Procedures ECHO, COMPLETE (2D), TRANS-THORACIC Epi Zimmerman DO [address] [place] [address] Phone: tel: fax: Referral ID Status Reason Start Date Expiration Date Visits Requested Visits Authorized [id number] Pending Review Precert 03/06/2024 [id number] Reason for Visit * Evaluate & Treat - Unlimited Visits (Within 3 days (urgent)) - Pending Review Specialty Diagnoses / Procedures Referred By Rolando calero Referred To Contact Ophthalmology Diagnoses Retinal defect Chas Ken DO [address] [facility] [address] [place] [address] Phone: tel: fax: Referral ID Status Reason Start Date Expiration Date Visits Requested Visits Authorized [id number] Pending Review Specialty Services Required 03/03/2024 [id number] Encounter Details Date Type Department Care Team (Late st Contact Info) Description 03/06/2024 9:00 AM EST Office Visit Ophthalmology, [facility] [address] [place] [address] Epi Zimmerman DO [address] [place] [facility] [place] [address] Amaurosis fugax, left eye*; Visual distortions of shape and size; Bullous retinoschisis of both eyes; Ocular migraine Allergies Active Allergy Reactions Criticality Noted Date [...] left eye 500 mg IV ONCE 03/06/2024 03/06/2024 Ended documented as of this encounter (statuses as [...] Sign Reading Time Taken Comments Blood Pressure 130/81 03/06/2024 10:51 AM EST Pulse 62 03/06/2024 10:51 AM EST Temperature - - Respiratory Rate - - Oxygen Saturation - - Inhaled Oxygen Concentration - - Weight - - Height - - Body Mass Index - - documented in this encounter Progress Notes * Epi Zimmerman DO - 03/06/2024 9:00 AM EST [facility] [place] [facility] Nursing notes reviewed. Eye vitals reviewed. Mood and Affect: normal HPI: Juarez McClincy Sr. is a 58 year old male who presents for evaluation of retinas CC: acute loss of inferior visual field, left eye which has resolved Vision: decreased Location (of CC): OS Quality/Severity: moderate-severe Duration: approx <48 hours Timing: sudden Context: was at work, lifting boxes Associated Signs/Symptoms: pain Modifying Factors: none No other eye complaints. Denies significant pain. Base Eye Exam Visual Acuity (Snellen - Linear) Right Left Dist cc 20/20 -1 20/40 Dist ph cc 20/25 Correction: Glasses Tonometry (Tonopen, 8:52 AM) Right Left Pressure 14 13 Pupils Pupils Dark Light Shape React APD Right PERRL 3.5 3 Round Brisk None Left PERRL 3.5 3 Round Brisk None Visual Mendez (Counting fingers) Right Left Full Full Extraocular Movement Right Left Full, Ortho Full, Ortho Neuro/Psych Oriented x3: Yes Mood/Affect: Normal Dilation Both eyes: 0.5% Proparacaine @ 8:51 AM Dilation #2 Both eyes: 1.0% Mydriacyl, 2.5% Phenylephrine @ 8:52 AM Dilation Comments Patient cautioned that effects of dilation may last 2-7 hours dependant upon individual reaction. It was discussed that driving while dilated is not recommended. EXTERNAL: The ocular adnexae are unremarkable. SLE: Lids/Lashes: wnl OU Conjunctiva/Sclera: quiet OU Cornea: clear OU Anterior Chamber: deep and quiet OU Iris: normal OU; no NVI OU Lens: trace NSC OU Dilated fundus exam OD: vitreous: clear optic nerve: 0.3, no edema/pallor/NVD macula: wnl vessels: wnl periphery: IT retinoschisis w/ Hoda's Dots, no RT/RD EXTENDED OPHTHALMOSCOPY performed w/ scleral depression and 20D lens-see retinal drawing in [facility] Dilated fundus exam OS: vitreous: clear optic nerve: 0.3, no edema/pallor/NVD macula: wnl vessels: wnl periphery: IT retinoschsis w/ Hoda's Dots and outer retinal hole w/ rolled edge, no inner retinal holes, no RT/RD EXTENDED OPHTHALMOSCOPY performed w/ scleral depression and 20D lens-see retinal drawing in [facility] OCT Interpretation: OD: no irf/srf, no pvd OS: no irf/srf, no pvd Fluorescein Interpretation: 03/06/2024 OD: wnl OS: normal filling, no defects A/P: 1. Amaurosis Fugax OS -03/02/24 acute loss vision OS w/ eye pain while at work -underwent stroke w/u at [facility] 03/02/24 -CT head and CTA neck unremarkable, ECG wnl; ESR 18 -seen by Dr. Ken 03/03/24; noted trace optic nerve hemorrhage; 24-2 HVF showed inferior altitudinal defect defect, felt possible NAION -VA mostly back to normal per pt -will order cardiac echo r/o possible cardiac source of embolic dz 2. Retinoschisis OU -w/ outer retinal hole OS -not related to #1 -no treatment indicated -monitor 3. h/o ocular migraines -classic kaleidescope symptoms w/ scotoma reported in past Epi Zimmerman DO CC: Chas Ken DO CC: PCP: Dar Barone MD documented in this encounter Nursing Notes * Katherine Dawn RN - 03/06/2024 10:52 AM EST FA done left eye greater than right eye. FA vitals-BP 130/81 pulse 62. IV 23 gauge butterfly inserted in right hand. Fluorescein dye 5ml injected and flushed with NSS. Patient tolerance: Well tolerated. IV site: discontinued.. Discharge instructions given. * Yvonne Lamas TECH - 03/06/2024 8:41 AM EST Juarez Madrid Sr. is a 58 year old year old male referred by to evaluate retinas. Patient's name preference, 'Oswald'. Patient currently states "initially when it happened I was at work and was carrying some heavy boxes and had a shadow and then a pressure behind my left eye" happened on 03/02/2024 and went to the ER and was told to be off work until 03/13/24. Have you ever had any major surgery of serious injury of or around the eyes- no Are you diabetic? No FAMILY HISTORY: Family History Problem Relation Name Age of Onset Lymphoma Mother Other (diverticular) Mother SOCIAL HISTORY: Social History Tobacco Use Smoking status: Former Current packs/day: 0.00 Types: Cigarettes Quit date: 07/10/2021 Years since quittin.6 Smokeless tobacco: Never Vaping Use Vaping status: Never Used Substance Use Topics Alcohol use: Never Drug use: Never PMH: Past Medical History: Diagnosis Date Dyslipidemia, goal LDL below 100 GERD (gastroesophageal reflux disease) MINNIE (obstructive sleep apnea) Primary hypertension Patient Active Problem List Diagnosis GERD (gastroesophageal reflux disease) Primary hypertension Class 3 severe obesity due to excess calories with serious comorbidity and body mass index (BMI) of45.0 to 49.9 in adult (HCC) Primary osteoarthritis of both knees Prediabetes History obtained from: Patient Do you drive? yes OCT, fundus image(s) of both eyes acquired and filed/scanned into chart. documented in this encounter Plan of Treatment Upcoming Encounters Date Type Department Care Team (Late st Contact Info) Description 03/07/2024 9:30 AM EST Office Visit Cardiology, [facility] [address] [place] [address] Mariano Simms, DO [address] [place] [address] 04/05/2024 6:20 PM EST Office Visit [facility] [address] [facility] [phone] JuneDar MD [address] [facility] [place] [address] 09/04/2024 8:45 AM EDT Office Visit Ophthalmology, [facility] [address] [place] [address] Epi Zimmerman, DO [address] [place] [address] Scheduled Orders Name Type Priority Associated Diagnoses Orde r Schedule RETINA SCAN DIAGNOSTIC IMAGE, POSTERIOR Procedures Routine Visual distortions of shape and size Ordered: 03/06/2024 FUNDUS PHOTOGRAPHY Procedures Routine Visual distortions of shape and size Ordered: 03/06/2024 DOPPLER ECHO EXAM OF HEART,COMPLETE Echocardiology SHRUTHI Amaurosis fugax, left eye Expected: 03/06/2024 (Approximate), Expires: 04/06/2026 ECHO, COMPLETE (2D), TRANS-THORACIC Echocardiology SHRUTHI Amaurosis fugax, left eye Expected: 03/06/2024, Expires: 04/06/2026 FLUORESCEIN ANGIOGRAPHY MULTIFRAME Procedures Routine Amaurosis fugax, left eye Ordered: 03/06/2024 Scheduled Procedures Name Priority Associated Diagnoses Date/Ti me COLONOSCOPY FLEXIBLE PROXIMAL DIAGNOSTIC Recall History of colon polyps Scheduled Referrals Name Type Priority Associated Diagnoses Orde r Schedule CARDIOLOGY REFERRAL OP Referral Within 24 hrs (call dept; emergent) Amaurosis fugax, left eye Ordered: 03/06/2024 Health Maintenance Due Date Last Done Comments [...] as of this encounter Visit Diagnoses Diagnosis Amaurosis fugax, left eye- Primary Transient arterial occlusion of retina Visual distortions of shape and size Bullous retinoschisis of both eyes Ocular migraine Other forms of migraine, without mention of intractable migraine without mention of status migrainosus documented in this encounter Administered Medications Inactive Administered Medications - up to 3 most recent administrations Medication Order MAR Action Action Date Dose Rate Site Fluorescein Sodium (Fluorescite) inj 500 mg 500 mg (5 mL), Intravenous, ONCE, On 03/06/24 at 1345, For 1 doseIndications:Amaurosis fugax, left eye Given 03/06/2024 2:14 PM EST [address] Right documented in this encounter Care Teams Lining Cutter Relationship Specialty Start Date End Date June, Dar Smith MD PCP - General Family Medicine 02/26/23 documented as of this encounter
--- OUTSIDE RECORDS SUMMARY | 2024-03-14 08:04 | External Medical Summary ---
Author Name Unknown Address Unknown Organization [facility] [address] [place] [address] Laboratory Report Ordering Provider Test Date Status RONNI HENRY 03/07/2024 11:33:24 Final Observation Date Value Abnormality Reference (Units ) Status CRP, low-sensitivity 03/07/2024 11:33:24 45 Above high normal <=5 (mg/L) Final Performing Location [facility] - [address] [place] [address]
--- OUTSIDE RECORDS SUMMARY | 2024-03-14 08:04 | External Medical Summary | Summary of Care ---
Author Name Unknown Organization [facility] Address [address] [place] [address] Phone [phone] Care Team Providers Care Hot Plate Plywood Press Operator Name Role Phone Dar Barone MD Primary Care Provider [phone] Reason for Referral * Evaluate & Treat - Unlimited Visits (Within 3 days (urgent)) - Pending Review Specialty Diagnoses / Procedures Referred By Rolando calero Referred To Contact Ophthalmology Diagnoses Retinal defect Chas Ken DO [address] [facility] [address] [place] [address] Phone: tel: fax: Referral ID Status Reason Start Date Expiration Date Visits Requested Visits Authorized [id number] Pending Review Specialty Services Required 03/03/[phone] Question Answer Referral Priority Within 3 days (urgent) Where should this appointment be scheduled? [facility] Referring for: Ophthalmology Conditions Ophthalmology Conditions Other Ophthalmology (comment) Comments Retinal eval, possible tear vs hole Encounter Details Date Type Department Care Team (Late st Contact Info) Description 03/03/2024 Orders Only [facility] [place] [place] [address] [place] [address] Av Ext *DO NOT REMOVE THIS DEPARTMENT* [place] [id number] Request, External Referral Retinal defect* Allergies Active Allergy Reactions Criticality Noted Date Comments Morphine 07/17/2021 Penicillins 07/17/2021 documented as of this encounter (statuses as of 03/03/2024) Medications busPIRone HCl 5 MG Oral Tablet [...] MOUTH IN THE MORNING 90 Tablet 3 03/22/2023 Active Atorvastatin Calcium 40 MG Oral Tablet (Lipitor) TAKE 1 TABLET BY MOUTH EVERY MORNING 90 Tablet 2 06/25/2023 Active Omeprazole 20 MG Oral Capsule Delayed Release (PriLOSEC) Take 1 capsule by mouth daily in the morning, 1 hour before the first meal of the day 90 Capsule 1 09/06/2023 Active documented as of this encounter (statuses as of 03/03/2024) Active Problems Problem Noted Date Diagnosed Date Primary osteoarthritis of both knees 01/03/2024 Prediabetes 01/03/2024 Class 3 severe obesity due t o excess calories with serious comorbidity and body mass index (BMI) of 45.0 to 49.9 in adult 02/26/2023 GERD (gastroesophageal reflux disease) 2 Primary hypertension 07/17/2021 documented as of this encounter (statuses as of 03/03/2024) Immunizations Name Administration Dates Next Due Seasonal [...] 03/06/2024 9:00 AM EST Office Visit Ophthalmology, [facility] [address] [place] [address] Epi Zimmerman, DO [address] [place] [address] 03/20/2024 3:00 PM EST Office Visit Orthopaedics [facility] [address] [place] [phone] Ashley Overton MD [address] [place] [address] 04/05/2024 6:20 PM EST Office [facility] [address] [facility] [place] [phone] June, Dar Smith MD [address] [place] [address] Scheduled Procedures Name Priority Associated Diagnoses Date/Ti me COLONOSCOPY FLEXIBLE PROXIMAL DIAGNOSTIC Recall History of colon polyps Scheduled Referrals Name Type Priority Associated Diagnoses Orde r Schedule ADULT/PEDS OPHTHALMOLOGY/OPTOM [facility]TRY REFERRAL OP Referral Within 3 days (urgent) Retinal defect Ordered: 03/03/2024 Health Maintenance Due Date Last Done Comments [...] as of this encounter Visit Diagnoses Diagnosis Retinal defect- Primary Retinal defect, unspecified documented in this encounter Care Teams Hot Plate Plywood Press Operator Relationship Specialty Start Date End Date June, Dar Smith MD PCP - General Family Medicine 02/26/23 documented as of this encounter
[2024-03-14] MEDS ORDERED: ACETAMINOPHEN 325 MG TAB PO PRN (09:21)
[2024-03-14] MEDS ORDERED: NITROGLYCERIN SL 0.4 MG/TAB TAB SL PRN (09:21)
--- NOTE | 2024-03-14 09:47 | History & Physical Report ---
Date of Service March 14, 2024 Assessment & Plan (1) Left atrial mass: Plan: 58-year-old male with recent partial vision loss on the left eye concerning for ischemic stroke of the optic nerve. MRI of the brain performed last week revealed no acute intracranial abnormalities or evidence of recent or past embolic phenomenon. Transesophageal echocardiogram today reveals preserved left ventricular systolic function, LVEF in the range of 55 to 60%. The aortic, mitral, tricuspid and pulmonic valves were all well-visualized without evidence of vegetation, significant or regurgitation or stenosis. A large multilobed mobile left atrial mass was observed in the left atrium, attached to the interatrial septum, measuring 0.6 cm x 3.3 cm. Differential diagnosis includes left atrial myxoma, thrombus, vegetation, or other cardiac mass. 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 Patient without known documented history of atrial fibrillation or stigmata to suggest left atrial fibrillation with no subjective palpitations, and normal left atrial volume on recent transthoracic echocardiogram 03/06/2024. Discussed findings with patient and his spouse, Jodie. I have concerns that the patient is at risk for future embolic events would recommend expedited cardiothoracic surgery consultation to discuss surgical removal of the left atrial mass. Case discussed with CT surgery at [facility]. At this time recommend admission to the hospital for diagnostic invasive coronary angiography to be performed at [facility] , with plans for expedited CT surgery evaluation and intervention if deemed indicated. Patient agreeable. (2) Hypertension: Plan: * Continue outpatient irbesartan. Patient took his 150 mg dose at home this morning prior to leaving for the hospital. He is therefore due for next dose tomorrow. (3) Hyperlipidemia: Plan: * Continue atorvastatin 40 mg daily. Patient did not take his dose at home today. Will therefore administer first dose today. I spend a total of 90 minutes on the date of service in preparation, delivery, and documentation of the care provided to this patient, excluding any time spent in the performance of separately billed services including discussing his case with CT surgery and having an extended discussion with the patient and his spouse. History of Present Illness Primary Care Provider: Dar Barone MD Mr Madrid is a 58 year old male With past medical history of obesity, hypertension, obstructive sleep apnea, prediabetes, former cigarette smoking, and dyslipidemia. 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 He was at work unloading heavy items from a truck on 03/02/2024 when he had acute onset of partial visual loss of his left eye. He was seen in the emergency department at [facility] where he CT angiogram of the head and neck and CT of the head was negative for acute abnormality. The patient declined hospital admission at that time and ultimately saw general ophthalmology and was referred to a retinal specialist with appointment last week. He was referred for transthoracic echocardiogram which was performed as an outpatient on 03/07/2024 with findings suggestive of the multiple mass in the left atrium. He was seen in consultation by the undersigned the next day on 03/08/2024 and arrangements were made for him to have an outpatient transesophageal echocardiogram today. The patient underwent BHUMIKA today and was found to have a large multilobed echodensity in the left atrium adherent to the interatrial septum. The patient denies any worsening visual problems and states that the left eye visual acuity has been improving. He denies any slurred speech or other neurologic symptoms. Denies chest discomfort or shortness of breath. Past Medical History - Obesity with body mass index of 43.6 kg per meter square, weight 295 pounds - Hypertension - Prediabetes - Obstructive sleep apnea - History of diverticulitis -osteoarthritis of the knees bilaterally Family History - Uncle had heart disease, 3 or 4 heart attacks - another uncle of heart attack at the age of 43 - Son has heart murmur - Mother has heart murmur - Mother has cancer lymphoma - Mother recently diagnosed with blood clots in both legs Allergies Allergy/AdvReac Type Severity Reaction Status Date / Time morphine Allergy Severe chest Verified 03/09/24 09:46 tightness Penicillins Allergy Intermediate ANGIOEDEMA Verified 03/09/24 09:46 Home Medications Medication Instructions Recorded Confirmed Type omeprazole 20 mg tablet,delayed 20 mg PO QAM 01/10/19 03/09/24 History release aspirin 81 mg chewable tablet 81 mg PO QAM 11/16/19 03/09/24 History mecobalamin (vitamin B12) 1,000 1,000 mcg sublingual DAILY #90 tabs 07/13/21 03/09/24 Rx mcg disintegrating tablet,sublingual CPAP Supplies #1 ea 03/04/22 03/04/22 Rx atorvastatin 40 mg tablet 40 mg PO QAM 03/02/24 03/09/24 History buspirone 5 mg tablet 5 mg PO UD PRN Anxiety 03/02/24 03/09/24 History irbesartan 150 mg tablet 150 mg PO QAM 03/02/24 03/09/24 History acetaminophen 500 mg tablet 1,500 mg PO QAM 03/09/24 03/09/24 History ibuprofen 200 mg tablet 400 mg PO QAM PRN Pain 03/09/24 03/09/24 History Past Med/Surg History Problem List (Updated 03/14/24 @ 09:49 by Mariano Simms DO) Left atrial mass Pain around eye (Acute) Blurred vision, left eye (Acute) Injury of toe 06/2021 Tobacco dependence Ileus 06/2021 Anemia Morbid obesity with BMI of 40.0-44.9, adult Diverticulitis (Acute) Prediabetes Encounter for pre-operative examination Internal derangement of knee Right knee injury 06/2019 Osteoarthritis Hyperlipidemia Hypertension Sleep apnea cpap GERD (gastroesophageal reflux disease) (Chronic) Anxiety (Chronic) Medical History Ocular migraine Morbid obesity Prediabetes diet control, no meds Family history of blood clots Mother (who has lymphoma) currently has blood clots in both legs (on eliquis) and oldest daughter has clot in liver currently. pt. has never had genetic testing for clotting Hx of blurred vision (03/06/24) pt presented to [facility] ED 03/02/24 c/o acute onset L partial field of vision blurring and eye pain; w/u was unremarkable. 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 VA mostly back to normal per pt... will order Cardiac ECHO r/o possible cardiac source of embolic dz'; Cardio visit 03/07/24, pt reported ongoing visual deficit L eye Mass of left cardiac ventricle (03/07/24) pt had ECHO 03/06/24 after episode of amurosis fugax on 03/02/24; ophth thought to be 2/2 non-arteritic anterior ischemic optic neuropathy and ordered ECHO r/o possible cardiac source of embolic dz. ECHO showed a LA mass; and pt saw [employer] [facility] 03/07/24, reported ongoing visual deficit L eye, and scheduled for BHUMIKA Osteoarthritis leo in b/l knees, gets cortisone shots History of diverticulitis GERD (gastroesophageal reflux disease) Anxiety Hypertension Hyperlipidemia Sleep apnea CPAP Surgical History History of arthroscopy of both knees History of colonoscopy 06/2018 - sigmoid diverticular disease, 2 polyps History of surgery on arm left bicep tendon repair - Wally Mohamud MD History of tooth extraction History of wisdom tooth extraction History of tonsillectomy and adenoidectomy Status post myringotomy with tube placement of both ears History of cardiac cath (2011) 2011 @ [facility] no stents- no ID (had chest pain/diaphoresis)- follows cardio mariano shah Family History Father Family history of diabetes mellitus Daughter Family hx of colon cancer Grandmother Ovarian cancer Uncle Myocardial infarction Mother Brain cancer ADMINISTRATIVE OFFICE SPECIALIST Lymphoma Other Breast cancer Colorectal cancer Coronary heart disease Heart disease Hypertension No family history of adverse response to anesthesia Denies family history of Prostate cancer Social History Smoking Status: Former smoker Tobacco Type: Cigarettes Cigarettes Per Day: 15; Smoking End Date: 2019; Second Hand Exposure: No; Do You Dip or Chew Tobacco: No; Tobacco Cessation Education Requested by Patient: No Hx Alcohol Use: No Hx Substance Use: No Preferred Language: Bermudian Communication Ability: Effective Visual Impairment: Limited Hearing Ability: Normal 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 Required: No Beliefs That Will Affect Care: None marital status: Current Living Situation: Spouse Current Living Situation Comment: Lives with and 2 granddaughters current occupational status: employed 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 How many Children do You have: 4 Other Information That Helps Us Care for You: No Feels Safe at Home: Yes Safety Concerns: Feels Safe At This Time Childhood Exposure to Second-Hand Smoke: Yes Diet: regular caffeine: Yes during the past year weight has: remained stable Dental Care, Regularly: No Physical Activity Frequency: Does not Exercise Seatbelt Use: always Sunscreen Use: Yes Assistive Devices: Contacts, CPAP and Glasses Review of Systems Review of Systems: All systems reviewed & are unremarkable except as noted in HPI & below Physical Exam Physical Exam: Temp Pulse Resp BP Pulse Ox O2 Del Method 36.9 C 76 18 135/64 97 Room Air 03/14/24 06:51 03/14/24 09:00 03/14/24 09:00 03/14/24 09:00 03/14/24 09:00 03/14/24 09:00 General: no acute distress and stated age Eyes: conjunctiva are pink and non-injected, sclera clear Neck: normal jugular venous pulse, no hepatojugular reflux Chest: normal shape and normal respiratory effort Lungs: clear to auscultation and percussion Cardiac Exam: - regular heart sounds, no murmurs, rubs, or gallops, no jugular venous distention Abdomen: abdomen soft, non-tender, no abnormal masses and no hepatosplenomegaly Musculoskeletal: no gait disturbance, no weakness Extremities: no edema and no cyanosis Neuro:awake, conversant, follows commands, no focal motor deficits Psych: appropriate affect and insight. Results & Data Results & Data Vital Signs (Past 12 Hours) Vital Signs Temp Pulse Resp BP Pulse Ox O2 Del Method 03/14/24 09:00 76 18 135/64 97 Room Air 03/14/24 08:25 74 18 118/84 97 Room Air 03/14/24 08:12 88 18 115/94 97 Room Air 03/14/24 07:55 83 18 127/73 96 Room Air 03/14/24 06:51 36.9 C 78 18 161/85 H 96 Room Air Diagnostic Findings Summary of radiology report of MRI of the brain performed 03/07/2023 at [facility]: TECHNIQUE: Multiplanar multisequence magnetic resonance imaging of the brain was obtained before and after administration of intravenous contrast. COMPARISON: None FINDINGS: The ventricles and sulci are normal in size and configuration for age. There is no evidence of an acute infarct, hemorrhage, or mass lesion. No extra-axial fluid collection or midline shift. The basal cisterns are patent. The flow voids of the major intracranial arteries are grossly preserved. There are no suspicious enhancing abnormalities of the brain. A small focus of susceptibility artifact of the right cerebellar hemisphere may be due to a chronic microhemorrhage. No acute calvarial or orbital abnormality. There is mild scattered paranasal sinus mucosal thickening. The mastoid air cells are clear. IMPRESSION IMPRESSION: No acute intracranial abnormality or suspicious lesion. Code Status & VTE Plan VTE Prophylaxis Plan VTE Prophylaxis will be ordered: Yes
--- NOTE | 2024-03-14 10:04 | XRay Report ---
XR chest 1V portable CLINICAL HISTORY: left atrial mass COMPARISON STUDY: 03/02/2024 FINDINGS: There is stable mild cardiomegaly without pulmonary vascular congestion. No effusion, conso lidation, or pneumothorax. IMPRESSION: No acute findings. ACT 112: Negative or not required by law. Electronically signed by: Luis Garcias M.D. 03/14/2024 10:02 AM
--- NOTE | 2024-03-14 10:46 | Post Operative Brief Note ---
Cardiology Brief Post Op Date of Surgery March 14, 2024 Pre & Post Diagnosis Operation Date: 03/14/24 12:00 Procedure Preprocedure diagnosis: Left eye visual deficit, assess for cardiac source of embolism Postprocedure diagnosis: Large mobile left atrial mass Transesophageal echocardiogram procedure: Patient's vital signs were monitored via the standard fashion. After informed consent was obtained a timeout was performed the patient was sedated with the assistance of the anesthesia service. The patient was found to have a large mobile multilobed cardiac mass adherent to the interatrial septum, measuring 0.6 cm x 3.3 cm. Refer to full BHUMIKA report for further details. Tank Storage Supervisor Mariano Simms DO Shell Fisherman Amanda Wesley, RCS Estimated Blood Loss 0 Findings Consistent with Post-Op Diagnosis as noted above Complications none
[2024-03-14 11:53] LABS: Basophils # (auto) 0.03 K/uL (0.00-0.20); Basophils % (auto) 0.4 %; Eosinophils # (auto) 0.03 K/uL (0.00-0.50); Eosinophils % (auto) 0.4 %; Hematocrit (blood only) 38.8 % (42.0-52.0); Hemoglobin 13.3 g/dl (14.0-18.0); Immature Granulocytes # (auto) 0.06 K/uL (0.01-0.20); Immature Granulocytes % (auto) 0.9 %; Lymphocytes # (auto) 2.18 K/uL (1.20-3.40); Lymphocytes % (auto) 32.4 %; Mean Corpuscular Hemoglobin 30.2 pg (25.0-34.0); Mean Corpuscular Hgb Conc 34.3 g/dL (32.0-36.0); Mean Platelet Volume 9.4 fL (9.4-12.4); Monocytes # (auto) 0.57 K/uL (0.11-0.59); Monocytes % (auto) 8.5 %; Neutrophils # (auto) 3.85 K/uL (1.40-6.50); Neutrophils % (auto) 57.4 %; Platelet Count 295 K/uL (130-400); RDW Standard Deviation 41.7 fL (36.4-46.3); Red Blood Count 4.41 M/uL (4.70-6.10); White Blood Count 6.72 K/ul (4.8-10.8)
[2024-03-14 12:09] LABS: Albumin Globulin Ratio 1.7 (0.9-2); Albumin Level 4.3 gm/dl (3.4-5.0); BUN Creatinine Ratio 16.2 (10-20); Bilirubin,Total 0.5 mg/dl (0.2-1.0); Calcium 8.9 mg/dl (8.6-10.3); Creatinine Clr Calc Pharmacy 113.3 ml/min; Globulin 2.6 gm/dl (2.5-4.0); Total Protein 6.9 gm/dl (6.0-8.3)
[2024-03-14 12:20] LABS: Partial Thromboplastin Ratio 0.9; Partial Thromboplastin Time 25 Seconds (21-31); Prothrombin Time 10.4 Seconds (9.0-12.0)
--- NOTE | 2024-03-14 13:26 | Electrocardiogram Report ---
Test Reason : Blood Pressure : */* mmHG Vent. Rate : 70 BPM Atrial Rate : 70 BPM P-R Int : 154 ms QRS Dur : 128 ms QT Int : 376 ms P-R-T Axes : 9 78 -1 degrees QTcB Int : 406 ms Normal sinus rhythm Non-specific intra-ventricular conduction block Cannot rule out Inferior infarct , age undetermined Abnormal ECG When compared with ECG of 02-Mar-2024 13:57, Non-specific intra-ventricular conduction block has replaced Incomplete right bundle branch block Minimal criteria for Inferior infarct are now Present Inverted T waves have replaced nonspecific T wave abnormality in Inferior leads Confirmed by Ray Lewis ([id number]) on 03/14/2024 1:25:53 PM Referred By: Mariano Simms Confirmed By: Ray Lewis
--- NOTE | 2024-03-14 13:37 | Pre Anesthesia Assessment ---
Date of Service March 14, 2024 Pre Sedation Assessment Vital Signs Temp Pulse Resp BP Pulse Ox O2 Del Method 03/14/24 09:00 76 18 135/64 97 Room Air 03/14/24 08:25 74 18 118/84 97 Room Air 03/14/24 08:12 88 18 115/94 97 Room Air 03/14/24 07:55 83 18 127/73 96 Room Air 03/14/24 06:51 98.4 F 78 18 161/85 H 96 Room Air Cardiovascular + regular rate Respiratory + respiratory effort normal Pre-Sedation Airway Assessment Smoking Status: Former smoker Hx Sleep Apnea: No Hx Difficult Intubation: No Short, Thick Neck: No Thyromental Distance: > or= 3.5 Finger Breadths Oral Cavity: + Dental Abnormalities Mallampati Class: II ASA: ASA3 Procedure Planning Contraindications for Sedation: none Current Medications Reviewed: Yes Notes The planned sedation has been discussed with the patient. Informed Consent was obtained. I have identified the patient, determined the appropriateness of sedation and have assessed the patient immediately prior to the procedure. All medicine(s) and interventions are by my order.
--- NOTE | 2024-03-14 13:37 | History & Physical Bridge Note ---
Date of Service March 14, 2024 History & Physical Bridge Note I have examined the patient, reviewed the History & Physical and in the interval since the performance of the History & Physical I have noted the following changes of clinical significance: no changes noted
[2024-03-14] MEDS: NITROGLYCERIN/D5W 100MCG/ML 20ML SYR ONE (13:51)
[2024-03-14] MEDS: diphenhydrAMINE 50 MG/ML VIAL ONE (13:51)
[2024-03-14] MEDS: niCARdipine 2,000 MCG/20 ML SYR ONE (13:52)
[2024-03-14] MEDS: MIDAZOLAM HCL 1 MG/ML 2ML VIAL ONE ×2 (13:52→14:58)
[2024-03-14] MEDS: fentaNYL citrate PF 100 MCG/2 ML VIAL ONE (13:52)
[2024-03-14] MEDS: OPTIRAY 350 ONE (13:59)
--- NOTE | 2024-03-14 14:17 | Post Anesthesia Assessment ---
Date of Service March 14, 2024 Post Sedation Assessment Vital Signs Temp Pulse Resp BP Pulse Ox O2 Del Method 03/14/24 14:09 98.4 F 83 20 135/93 98 Room Air 03/14/24 09:00 76 18 135/64 97 Room Air 03/14/24 08:25 74 18 118/84 97 Room Air 03/14/24 08:12 88 18 115/94 97 Room Air 03/14/24 07:55 83 18 127/73 96 Room Air 03/14/24 06:51 98.4 F 78 18 161/85 H 96 Room Air Recovery Score Activity: Moves 4 extremities Respiration: Deep Breath/Cough Circulation: +/-20% PreAnes Value Consciousness: Fully Awake Oxygen Saturation: > 92% On Room Air Post Anesthesia Score: 10 Discharge Sedation Level of Care: Fast Track Phase II Post Sedation Plan On clinical assessment, the patient appears to have tolerated the sedation without complications. Patient is recovering as anticipated. Patient will continue to be monitored by nursing and may be discharged when sedation discharge criteria are met per below protocol. Upon Completions of procedure up to 15 minutes continue every 5 minute vital signs and the P.A.R. score; then discharge to a Phase I or Fast Track to Phase II per the following guidelines: * Discharge Patient to appropriate Phase II area if PAR is 8 or greater or return to pre- procedure baseline. The post - procedure orders will be as directed. * If PAR score is less than 8 or not return to pre-procedure baseline then patient will follow Phase I monitoring till PAR is reached for Phase II. The Phase I may be done in procedure room or may call to secure a Phase I area. * If naloxone or flumazenil are used for reversal, hold in Phase I for continued monitoring from when last reversal dose was given for a minimum of 60 minutes or longer pending the nurse and/or physician discretion of patient condition before discharge to Phase II. Please call the Sedation Physician to re-evaluate and complete post-note for discharge to Phase II area. Do NOT discharge from procedure sedation or Phase 1 until post- sedation evaluation note is complete by procedure /sedation MD Sedation Discharge Instructions to be given to the patient at discharge to home.
--- NOTE | 2024-03-14 14:27 | Cardiac Catheterization ---
[facility] Data: Drafter Civil (Cad) Cardiac Status Clinical evaluation leading to the procedure CAD Presenation: Sx unlikely to be ischemic Diagnostic Physicians Name: Epi Magallanes MD Closure Device Recommendations: Medical Therapy and/or Counseling Cardiac Cath Procedure Full Procedure Date March 14, 2024 Pre-Procedure Diagnosis Pre-Procedure Diagnosis: Cardiothoracic Symptom (left atrial mass) AUC Score AUC Score: 7 Post-Procedure Diagnosis Post-Procedure Diagnosis: Mild CAD Procedure(s) Performed Procedure(s) Performed: Coronary Angiography Paper Products Printer Epi Magallanes MD Health Club Manager(s) Kristin Estimated Blood Loss Estimated Blood Loss: 10 Medication(s) Medication(s): Diphenhydramine, Heparin, Nicardipine, Nitroglycerin and Versed Summary of Findings Indication: Left atrial mass Access: 6 Fr slender right radial artery Catheters: [place], diagnostic JL 3.5, JR4 Findings: LM -normal caliber, no significant disease. LAD -large caliber, ectatic proximally with luminal irregularities, small mid to distal vessel without significant disease and extends to apex. Large D1 without significant disease. Circumflex -dominant, large caliber, mid segment luminal regularities. Large OM1 with 25% ostial stenosis. medium OM 2 without significant disease. Small left PDA without significant disease. RCA -nondominant, high takeoff, small caliber, mid segment luminal irregularities. Arterial Closure: TR band Summary: 1. Minimal nonobstructive coronary artery disease Recommendations: Transfer to tertiary center for further management of left atrial mass per Dr. Simms Continued ASCVD risk factor modification Hemodynamics Rest Ao:: 108/76/94 Final Ao: 108/76/94 LV: -- Recommendations Recommendations: Medical Therapy and/or Counseling Radiation Exposure (mGy) 524 Contrast (mls) 60 Anesthesia Moderate 6712-1235 Procedural Complication(s) None Disposition PCU I attest to the content of the Intraoperative Record and any orders documented therein. Any exceptions are noted below. [facility] Card Cath Procedure Codes Cardiac Catheterization Procedure 1: Cardiovascular Cath Procedures: 77476 Coronaries Moderate Sedation Procedure 1: Sedation/Anesthesia: 60157 Mod Sedation by the same physician;Init15 Min Child Age 5 & Up PG Care Time/CCT Total # of Minutes Spent Total Time Spent with Patient: Total time spent is greater than 50% in coordination of care (as documented) at patient's floor/unit and/or counseling patient:
[2024-03-14] MEDS: BENZOCAINE/TETRACAIN/BUTAM 50 APPLN/5 GM CAN EXT ONE (14:57)
[2024-03-14] MEDS: LIDOCAINE 2% 2 ML VIAL/AMP(20MG/ML) INFIL ONE ×2 (14:57→14:58)
[2024-03-14] MEDS: KETAMINE HCL 10MG/ML SYR ONE (14:57)
--- NOTE | 2024-03-14 14:58 | Discharge Summary ---
Date of Service March 14, 2024 Admission HPI Per Admitting Provider Mr Madrid is a 58 year old male With past medical history of obesity, hypertension, obstructive sleep apnea, prediabetes, former cigarette smoking, and dyslipidemia. 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 He was at work unloading heavy items from a truck on 03/02/2024 when he had acute onset of partial visual loss of his left eye. He was seen in the emergency department at [facility] where he CT angiogram of the head and neck and CT of the head was negative for acute abnormality. The patient declined hospital admission at that time and ultimately saw general ophthalmology and was referred to a retinal specialist with appointment last week. He was referred for transthoracic echocardiogram which was performed as an outpatient on 03/07/2024 with findings suggestive of the multiple mass in the left atrium. He was seen in consultation by the undersigned the next day on 03/08/2024 and arrangements were made for him to have an outpatient transesophageal echocardiogram today. The patient underwent BHUMIKA today and was found to have a large multilobed echodensity in the left atrium adherent to the interatrial septum. The patient denies any worsening visual problems and states that the left eye visual acuity has been improving. He denies any slurred speech or other neurologic symptoms. Denies chest discomfort or shortness of breath. Past Medical History - Obesity with body mass index of 43.6 kg per meter square, weight 295 pounds - Hypertension - Prediabetes - Obstructive sleep apnea - History of diverticulitis -osteoarthritis of the knees bilaterally Family History - Uncle had heart disease, 3 or 4 heart attacks - another uncle of heart attack at the age of 43 - Son has heart murmur - Mother has heart murmur - Mother has cancer lymphoma - Mother recently diagnosed with blood clots in both legs Principal Diagnosis left atrial mass Discharge Exam Temp Pulse Resp BP Pulse Ox O2 Del Method 36.9 C 87 20 129/86 96 Room Air 03/14/24 14:09 03/14/24 14:29 03/14/24 14:29 03/14/24 14:29 03/14/24 14:29 03/14/24 14:29 General: no acute distress and stated age Eyes: conjunctiva are pink and non-injected, sclera clear Neck: normal jugular venous pulse, no hepatojugular reflux Chest: normal shape and normal respiratory effort Lungs: clear to auscultation and percussion Cardiac Exam: - regular heart sounds, no murmurs, rubs, or gallops, no jugular venous distention Abdomen: abdomen soft, non-tender, no abnormal masses and no hepatosplenomegaly Musculoskeletal: no gait disturbance, no weakness Extremities: no edema and no cyanosis Neuro:awake, conversant, follows commands, no focal motor deficits Psych: appropriate affect and insight. Discharge Data Allergies Allergy/AdvReac Type Severity Reaction Status Date / Time morphine Allergy Severe chest Verified 03/09/24 09:46 tightness Penicillins Allergy Intermediate ANGIOEDEMA Verified 03/09/24 09:46 Procedures Performed Operation Date: 03/14/24 12:00 Actual Procedures p Cineradiography w/Routine Exam - Epi Magallanes MD s Cath, Coronaries ONLY (no LV) - Epi Magallanes MD Ordered Studies 03/14/24 13:31 CL Cath Imgs for PACS use only Routine Hospital Course (1) Left atrial mass: 58-year-old male with recent partial vision loss on the left eye concerning for ischemic stroke of the optic nerve. MRI of the brain performed last week revealed no acute intracranial abnormalities or evidence of recent or past embolic phenomenon. Transesophageal echocardiogram today reveals preserved left ventricular systolic function, LVEF in the range of 55 to 60%. The aortic, mitral, tricuspid and pulmonic valves were all well-visualized without evidence of vegetation, significant or regurgitation or stenosis. A large multilobed mobile left atrial mass was observed in the left atrium, attached to the interatrial septum, measuring 0.6 cm x 3.3 cm. Differential diagnosis includes left atrial myxoma, thrombus, vegetation, or other cardiac mass. Additional testing: Erythrocyte sedimentation rate is performed at [facility] ED on 03/02/24 was normal at 18 mm/hr. Repeat erythrocyte segmentation rate performed 03/07/2024 within the [facility] mildly elevated at 38 mm/h C-reactive protein performed 03/07[facility]2024 [facility] mildly elevated 45 mg/L Blood culture x 1 obtained 03/07/2024 [facility] the [facility]= no growth. Hypercoagulable workup including factor V Leiden mutation, prothrombin gene mutation, cardiolipin antibody (IgG IgM, beta 2 glycoprotein IgG, beta-2 glycoprotein IgM, homocysteine, lupus anticoagulant, protein see activity, protein S activity all obtained prior to initiating anticoagulation on 03/14/2024 at [facility], results pending. Invasive coronary angiography performed 03/06/2024: Angiographically normal coronary arteries, small nondominant right coronary artery. Plan: Transfer to tertiary center, [facility], with proposed plan of cardiac MRI for further evaluation of left atrial mass. Cardiac MRI should help differentiate tissue characteristics suggestive of thrombus versus left atrial myxoma. If findings suggestive of thrombus, proceed with anticoagulation. If further cardiac mass, cardiac surgery likely be indicated. Cardiac MRI and CT surgery consultation not available at this facility. In the meantime, after the patient's radial band is removed postcardiac catheterization and hemostasis of the right radial procedure site is confirmed, will start unfractioned heparin infusion. Case discussed with Dr.Sandy Kline who is on-call for the inpatient cardiology service at [facility] and accepted the patient in transfer. Patient to be transferred by [facility] when a bed is available. (2) Hypertension: * Continue outpatient irbesartan. Patient took his 150 mg dose at home this morning prior to leaving for the hospital. He is therefore due for next dose tomorrow. (3) Hyperlipidemia: * Continue atorvastatin 40 mg daily. Patient did not take his dose at home today. Will therefore administer first dose today. * Transesophageal echocardiogram images, cardiac catheterization images, both transferred electronically to the [employer] system for the purpose if coordination of care Total Time Total Time Spent Total Time Spent (In Minutes): 30 Discharge Plan Discharge Items Patient Disposition: Transfer Acute Care Hospital Reason For Visit: Left Atrial Mass, Susp. Embolic Stroke Discharge Diagnosis: left atrial mass Activity: Per Instructions section Non-emergency contact: Ambulance Officer Call non-emergency contact if: you have any medication questions and your symptoms worsen Follow-up/Referrals: Dar Barone MD [Primary Care Provider] - Diet: Heart Healthy Addtl Attending Provider Instructions: ACTIVITY RECOMMENDATIONS: Excess manipulation of the wrist should be avoided for the next 24-48 hours. * No lifting over 2 pounds (approximately a 1/2 gallon of milk) with the utilized arm for 24 hours. * No strenuous activity such as bowling or tennis for 3 days. * Keep the site of the procedure covered with a bandage for 24 hours. *You may shower the day after the procedure. Do not take a tub bath or submerge the puncture site in water for the next 3 days. *Do not operate any motorized equipment for 3 days. SPECIAL CARE INSTRUCTIONS: The site may be slightly bruised and sore following your procedure. Should any of the following occur, contact the Dr. who performed your procedure. 1. Redness/inflammation, swelling, chills, or fever, or colored drainage at procedure site within 3-7 days after your procedure. 2. Coldness, discoloration, ongoing numbness, severe pain, or swelling. Expect mild tingling of hand and tenderness at the puncture site for up to three days. If this persists beyond three days, or other symptoms develop, notify the Dr. who performed your procedure. BLEEDING: If the procedure site on your wrist begins to bleed, do not panic 1. Place 1 or 2 fingers firmly just slightly above the insertion site to stop the bleeding. You may be able to feel your pulse as you hold pressure. 2. Lift your finger after 5 minutes to see if the bleeding has stopped. 3. Once the bleeding has stopped, gently wipe the wrist area clean with a bandage. * If the bleeding from your wrist does not stop after 10 minutes, or if there is a large amount of bleeding or spurting, call 911 (do not drive yourself to the hospital). SKIN IRRITATION: * You may experience some redness and/or swelling in the area where radiation was administered. If any skin irritation occurs, please contact your family physician. FOLLOW UP VISIT: Keep any scheduled doctor appointments. Pending Studies at Discharge: Yes Studies:: hypercoagulable labs as listed above Stand-Alone Forms: My [facility] Skilled Items Patient informed of condition?: Yes DNR: No Discharge Level of Care: Other Communicable Disease: No Discharge Prognosis: Stable Lines: Peripheral IV Urinary Catheter: No Medications and DC Order Prescriptions: Continued (DME) CPAP Supplies Misc See Rx Instructions .ROUTE .MEDSUPPLY Qty: 1 0RF Rx Instructions: CPAP Supplies, tubing, filters, cushions, all necessary supplies omeprazole 20 mg tablet,delayed release (DR/EC) 20 mg PO QAM Patient Comments: TAKES IN AM Rx Instructions: 20 mg po daily. last filled 09/06/23 90 day supply aspirin 81 mg tablet,chewable 81 mg PO QAM Rx Instructions: otc unable to verify mecobalamin (vitamin B12) 1,000 mcg tablet,disintegrating 1,000 mcg sublingual DAILY Qty: 90 3RF buspirone 5 mg tablet 5 mg PO UD PRN (Reason: Anxiety) Rx Instructions: 5 mg po bid prn. No fill history available Discontinued acetaminophen 500 mg Tablet 1,500 mg PO QAM ibuprofen 200 mg Tablet 400 mg PO QAM PRN (Reason: Pain) No Action irbesartan 150 mg tablet 150 mg PO QAM Rx Instructions: filled 12/2023 90 day supply atorvastatin 40 mg tablet 40 mg PO QAM Rx Instructions: original: 80 mg po daily. Fill history of 09/19/23 has 40 mg po daily, 90 day supply Discharge Orders: Discharge Order (Routine); Ordered 03/14/24 Ordered By: Mariano Simms Admission Data Admit Date/Time: 03/14/24 09:21 Attending Provider: Mariano Simms Admit Provider: Mariano Simms Primary Care Provider: Dar Barone
[2024-03-14] MEDS: ASPIRIN 81 MG CHEW PO STA (14:59)
[2024-03-14] MEDS: ATORVASTATIN 40 MG TAB PO STA (15:00)
[2024-03-14] MEDS: HEPARIN (PORCINE) 1000 UNIT/ML 10 ML (CATH LAB USE ONLY) ONE (15:00)
[2024-03-14] MEDS ORDERED: Heparin IV Adult Wt-Based Standard *NO* INITIAL Bolus Protocol IV SCH (16:30)
[2024-03-14] MEDS: HEPARIN 25000 UNIT/500 ML 25,000 UNITS/500 ML BAG IV SCH (17:02)
[2024-03-14 23:20] LABS: ANTI-Xa, UFH(UnfractionatedHep 0.38 IU/ml (0.3-0.7)
--- NOTE | 2024-03-15 07:19 | Anesthesiology Progress Note ---
Date of Service March 14, 2024 Anesthesia Post Procedure Vital Signs Vital Signs: Temp Pulse Pulse Resp BP Pulse Ox O2 Del Method 03/15/24 03:23 36.6 C 85 18 116/78 96 Room Air 03/14/24 22:54 36.4 C L 79 18 123/82 93 Room Air 03/14/24 22:00 86 03/14/24 19:19 36.6 C 80 18 103/65 95 Room Air 03/14/24 16:11 36.4 C L 77 19 138/91 96 Room Air 03/14/24 15:53 36.8 C 81 18 132/80 Room Air 03/14/24 15:12 36.8 C 80 20 125/73 97 Room Air 03/14/24 14:57 36.8 C 77 20 131/82 96 Room Air 03/14/24 14:29 87 20 129/86 96 Room Air 03/14/24 14:09 36.9 C 83 20 135/93 98 Room Air 03/14/24 09:00 76 18 135/64 97 Room Air 03/14/24 08:25 74 18 118/84 97 Room Air 03/14/24 08:12 88 18 115/94 97 Room Air 03/14/24 07:55 83 18 127/73 96 Room Air Transfer of Care Handoff Completed per policy Notes Mental Status: alert / awake / arousable and participated in evaluation Nausea / Vomiting: adequately controlled Pain: adequately controlled Airway Patency, RR, SpO2: stable & adequate BP & HR: stable & adequate Hydration State: stable & adequate Anesthetic Complications: no major complications apparent and Pt Satisfied with anesthetic care
[2024-03-15] MEDS: CYANOCOBALAMIN (B-12) 500 MCG TABLET PO SCH (08:14)
[2024-03-15] MEDS: ASPIRIN 81 MG CHEW PO SCH (08:14)
[2024-03-15] MEDS: PANTOprazole 40 MG TAB PO SCH (08:14)
[2024-03-15] MEDS: LOSARTAN POTASSIUM 50 MG TAB PO SCH (08:15)
[2024-03-15] MEDS: ATORVASTATIN 40 MG TAB PO SCH (08:15)
[2024-03-15 08:53] LABS: ANTI-Xa, UFH(UnfractionatedHep 0.42 IU/ml (0.3-0.7)
[2024-03-15 10:38] VITALS: BP 127/88; PULSE 79; RESP 18; TEMP 97.3; O2SAT 95
--- NOTE | 2024-03-15 14:56 | Cardiology Progress Note ---
Date of Service March 15, 2024 Assessment & Plan (1) Left atrial mass: Plan: Transfer to tertiary center, [facility], with proposed plan of cardiac MRI for further evaluation of left atrial mass. Cardiac MRI should help differentiate tissue characteristics suggestive of thrombus versus left atrial myxoma. If findings suggestive of thrombus, proceed with anticoagulation. If further cardiac mass, cardiac surgery likely be indicated. Cardiac MRI and CT surgery consultation not available at this facility. Continue IV heparin, aspirin, atorvastatin, and losartan. Patient to be transferred by [facility] when a bed is available. (2) Hypertension: Plan: * Continue outpatient irbesartan. (3) Hyperlipidemia: Plan: * Continue atorvastatin 40 mg daily. Admission and Anticipated Discharge Date Admission Date: March 14, 2024 Subjective Patient seen and examined at the bedside. Feeling well from a cardiovascular perspective. Denies chest pain or shortness of breath. No focal weakness, visual changes, slurred speech, or paresthesias. Reports an episode of right- sided visual loss and amaurosis fugax prior to neurologic, ophthalmologic, and cardiac evaluations. 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 He is scheduled for transfer to [facility]. Cardiac catheterization revealed essentially normal coronary arteries. Telemetry reveals sinus rhythm in the 80s and 90s. Review of Systems Review of Systems: All systems reviewed & are unremarkable except as noted in Subjective Physical Exam Constitutional: well nourished; no acute distress Respiratory: no respiratory distress, no labored breathing and no retractions Auscultation: no crackles, no rales, no rhonchi and no wheezes Cardiovascular: Rate/Rhythm: regular rate and regular rhythm Heart Sounds: normal S1 and normal S2; no murmur Vessels: no JVD and no carotid bruit Extremities: no edema Gastrointestinal (Abdomen): Inspection/Auscultation: normal bowel sounds; abdomen not distended Percussion/Palpation: abdomen soft; abdomen nontender, no guarding and abdomen not rigid Neurologic: moves all extremities; no focal motor deficits Results & Data Vital Signs (Past 12 Hours) Vital Signs Temp Pulse Resp BP Pulse Ox O2 Del Method 03/15/24 14:12 36.3 C L 79 18 127/88 95 03/15/24 10:36 36.3 C L 79 18 127/88 95 Room Air 03/15/24 08:48 36.5 C 87 20 120/71 98 Room Air 03/15/24 03:23 36.6 C 85 18 116/78 96 Room Air
[2024-03-17 06:47] LABS: Anti Cardiolipin Ab IgG <2.0 GPL-U/mL; Anti Cardiolipin Ab IgM 4.9 MPL-U/mL; B2 Glycoprotein IgG <2.0 U/mL (<20.0); B2 Glycoprotein IgM 4.2 U/mL (<20.0)
[2024-03-17 10:17] LABS: PTT LA Screen 33 sec (<=40)
== END 2024-03-15 16:35 | disposition short-term general hospital (02) | DRG 287 ==
LOC: CC 06:11 → 2S 09:21
PROC: CLB.CCO (2024-03-14 12:00)